=== PATIENT | female | born 1940 | race Asian ===

== ENCOUNTER 2023-09-07 13:05 | Inpatient (IN) | payer MEDICAID, SELFPAY ==
[2023-09-07] VITALS (13 sets, daily range): BP systolic 118–149; BP diastolic 63–81; BMI 21.6
--- NOTE | 2023-09-07 11:56 | ED.GENMED ---
History of Present Illness
General
Chief Complaint: Abdominal Symptoms
Source: patient and family
Time Seen by Provider: 09/07/23 10:56
Travel History
Have you had any contact with someone who has COVID-19?: No
Do you have any symptoms of coronavirus? Fever > 100 degrees, chills, cough, shortness of breath, sore throat, loss of taste or smell, muscle aches, or headache?: No
History of Present Illness
History of Present Illness:
83-year-old female presents to the emergency room directly from having a colonoscopy. Patient was having colonoscopy because she has been having poor appetite, weight loss over the past several weeks. She had a CAT scan performed as an outpatient
which was suspicious for a colonic abnormality. Today during the colonoscopy she was she was found to have an almost completely obstructing colonic mass. Patient was therefore sent to the emergency room for hospitalization and likely surgical
intervention.
Past History
Past History
ED Past Medical History: None
ED Past Surgical History:
Social History
Tobacco: Non-smoker
Alcohol: None
Personal: Single
Living: with family
Phy Exam
Physical Exam
Physical Exam:
General: Awake, Alert, Oriented X3. Appears stated age, very thin
Vitals: unremarkable
Head: Atraumatic
Eyes: Pupils equal, EOMI
Throat: Airway intact, no exudates
Neck: Trachea midline
Lungs: Clear and equal b/l
Heart: Regular rate, no murmurs
Abd: Soft, Nontender, No pulsatile mass
Neuro: Nonfocal
Skin: Warm, dry, no rash
Extremities: pulses equal b/l, no edema
Course
Orders/Labs/Results
Orders:
Orders
09/07/23 Lunch
Clear Liquid
At Your Request: Limited Participation
Oral Supplement (If unsure of flavor order apple or vanilla): Ensure Clear Thompson
Supplement Frequency: BID
09/07/23 11:48
Complete Blood Count/With Diff Urgent
Comprehensive Metabolic Panel Urgent
Ferritin Urgent
Comment: ADD ON
Folate Urgent
Comment: ADD ON
Iron Urgent
Comment: ADD ON
Prealbumin (Transthyretin) Urgent
Comment: ADD ON
Total Iron Binding Urgent
Comment: ADD ON
Vitamin B12 Urgent
Comment: ADD ON
09/07/23 11:59
Type+Screen Urgent
09/07/23 12:00
0.9% Sodium Chloride 1000 ml [Nss] 1,000 ml IV 150 mls/hr
09/07/23 12:30
Admit/Transfer Patient As Directed
Co-Sign Provider:
Level of Care: Inpatient admission
Assign to:: Medical/Surgical
Physician / Group: Shadi Segundo
Diagnosis: colon cancer
Reason for Hospitalization: obstructing colon cancer
Expected length of stay greater than two midnights?: Yes
ELOS- Estimated Length of Stay in days: 7
I certify the patient meets the requirements for IP care: Yes
09/07/23 12:43
Consult Hospitalist [HOSPITALIST CONSULT] Routine
Consulting Provider: Stew Orellana
Was physician already notified: Yes
09/07/23 13:01
CT Chest/abd/pel W Iv Cont Routine
Comment:
Reason For Exam: metastatic work up, known colon ca
Abnormal Lab Results
09/07/23 09/07/23
11:48 11:59
RBC 3.24 L 10^6/uL
(4.20-5.40)
Hgb 7.7 L g/dL
(12.0-16.0)
Hct 24.7 L %
(37.0-47.0)
MCV 76.2 L fL
(81.0-99.0)
MCH 23.8 L pg
(27.0-31.0)
MCHC 31.2 L g/dL
(33.0-37.0)
RDW 18.9 H %
(11.5-14.5)
Chloride 108 H mmol/L
(98-107)
Glucose 103 H mg/dl
(70-99)
Iron 36 L ug/dl
(37-170)
% Saturation 11 L %
(20-50)
Ferritin 10.2 L ng/ml
(11.1-264.0)
AST 69 H U/L
(14-36)
ALT 48 H U/L
(0-35)
Alkaline Phosphatase 218 H U/L
(38-126)
Albumin 2.9 L g/dl
(3.5-5.0)
Prealbumin 13.0 L mg/dl
(17.6-36.0)
Crossmatch IS Only See Detail
09/07/23 11:48
09/07/23 11:48
Vital Signs
Initial and Last Documented VS:
Initial Vital Signs
Temp Pulse Resp BP Pulse Ox
97.6 F 78 16 149/81 95
09/07/23 10:41 09/07/23 10:41 09/07/23 10:41 09/07/23 10:41 09/07/23 10:41
Last Documented Vital Signs
Temp Pulse Resp BP Pulse Ox
97.6 F 78 16 149/81 95
09/07/23 10:41 09/07/23 10:41 09/07/23 10:41 09/07/23 10:41 09/07/23 10:41
MDM/Problems Addressed
Differential Diagnosis Includes:
Colonic mass, colonic obstruction
MDM/Problems Addressed:
Patient sent from GI suite after having a colonoscopy which shows a near complete obstruction of the colon from the mass. Surgical intervention planned by colorectal surgery. Labs here show a hemoglobin of 7.7, mild transaminitis.
*Pulse Oximetry
Patient hypoxic: no
*Critical Care Note
Total Time (30-74mins, 75-104mins- exclusive of procedures): Not Applicable
ED Attending Note
-
Portions of this chart may have been created with voice recognition software.� Occasional wrong word or��sound alike� substitutions may have occurred due to the inherent limitations of voice recognition software.
Discharge Plan
Departure
Patient Disposition: Admit
Date of Disposition: 09/07/23
Time of Disposition: 11:59
Admit to: Med/Surg
Presentation/result/management discussed w/ accepting MD/DO: Hospitalist
Condition: Fair
Discharge Problem:
Impending colonic obstruction, Colonic mass
Interventions
Interventions:
*Risk Screen - Suicide Last Done: 09/07/23 15:07
*General Assessment Last Done: 09/07/23 15:07
*Neglect/Abuse Screening Last Done: 09/07/23 15:07
*ED COVID-19 Vaccine History Last Done: 09/07/23 10:41
ZA-Zhnxgh-Eujgokecle Assessment Last Done: 09/07/23 15:07
[2023-09-07] MEDS: NSS 1000 IV ×2 (12:05→20:25)
[2023-09-07 12:08] LABS: % Basophils 0.5 % (0-2); % Eosinophils 1.9 % (0-6); % Immature Granulocytes 0.2 % (0-0.5); % Lymphocytes 38.3 % (20.5-51.1); % Monocytes 8.4 % (1.7-9.3); % Neutrophils 50.7 % (42.2-75.2); Absolute Eosinophils 0.1 10^3/uL (0-0.7); Absolute Lymphocytes 2.2 10^3/uL (1.2-3.4); Absolute Monocytes 0.5 10^3/uL (0.1-0.6); Absolute Neutrophils 2.9 10^3/uL (1.4-6.5); Hematocrit 24.7 % (37.0-47.0); Hemoglobin 7.7 g/dL (12.0-16.0); Mean Corp Hgb Conc. 31.2 g/dL (33.0-37.0); Mean Corpuscular Hgb 23.8 pg (27.0-31.0); Mean Corpuscular Volume 76.2 fL (81.0-99.0); Mean Platelet Volume 10.3 fL (7.4-10.4); Nucleated Red Blood Cells % 0 %; Platelet Count 294 10^3/uL (130-400); Red Blood Cell Count 3.24 10^6/uL (4.20-5.40); Red Cell Dist. Width 18.9 % (11.5-14.5); White Blood Cell Count 5.7 10^3/uL (4.8-10.8)
[2023-09-07 12:18] LABS: ALT (SGPT) 48 U/L (0-35); AST (SGOT) 69 U/L (14-36); Albumin 2.9 g/dl (3.5-5.0); Alkaline Phosphatase 218 U/L (38-126); Blood Urea Nitrogen 15 mg/dl (7-17); Calcium 8.5 mg/dl (8.4-10.2); Carbon Dioxide 22 mmol/L (22-30); Chloride 108 mmol/L (98-107); Glucose 103 mg/dl (70-99); Potassium 3.9 mmol/L (3.5-5.1); Sodium 139 mmol/L (135-145); Total Bilirubin 0.9 mg/dl (0.2-1.3); Total Protein 6.6 g/dl (6.3-8.2); eGFR > 60.00
--- NOTE | 2023-09-07 13:05 | HPS.HSE ---
Addendum entered and electronically signed by Shadi Segundo MD 09/07/23 14:47:
History, vitals, labs, prior imaging reviewed. Patient seen and examined.
83-year-old female with splenic flexure colon mass which is endoscopically obstructing but not clinically obstructing and is likely a colon cancer. This was initially found on outpatient CT and earlier today confirmed on colonoscopy that I
performed in the [facility] center. I was unable to traverse the area. It was biopsied and tattooed. 2 polyps that were benign in appearance distal to this were removed as well. She has had weight loss, decrease in appetite, and change in bowel
function towards constipation. No nausea or vomiting. Prior CT showed no obvious abdominal metastatic disease. Vitals are stable. Hemoglobin low at 7.7. Mild transaminitis noted on LFTs. Albumin a little low at 2.9. I am concerned about
impending obstruction. Discussed the situation with the patient's daughter, Noe. Patient's daughter relates that the patient is aware of her circumstances. I recommended admission to the hospital for likely surgical intervention. Will likely
need transfusion. Will obtain repeat CT imaging to include not only abdomen and pelvis but also the chest. Anticipate some magnesium citrate tomorrow. Continue clears till evening. Surgery tentatively Tuesday 2 days from now. I
discussed that the appropriate operation would be a robotic left colectomy. Emphasized the higher risk of conversion to open given its proximity to the spleen and potentially a slightly higher risk of anastomotic issues due to mild malnutrition.
The patient's daughter understands and relates this to the patient. Hospitalist consulted for medical management/clearance.
Thanks.
Original Note:
Family Physician
-
Family Physician: Kathleen Rhodes DO
Chief Complaint
-
Weight loss, change in bowel habits
History of Present Illness
83-year-old female, with a known colon mass, presents to the ED directly from outpatient colonoscopy. The was initially seen by Dr. Segundo in outpatient clinic on 07/18/2023. Initially the patient had developed right lower quadrant discomfort
about a year ago which resolved but led to outpatient blood work. 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 Infectious disease recommended a CT scan of the abdomen and pelvis which was done on 07/06/2023. They resulted
in a a centimeter segment of colon wall thickening at the splenic flexure/proximal descending colon which was described as 'highly suspicious for neoplasm, colonoscopy advised'. The patient never had a colonoscopy in the past. Probably cystic
liver was also noted at that time. The patient had blood work on 06/26/2023 which showed elevated LFTs. The patient has had ongoing diminished appetite with a weight loss of 10 to 15 pounds over the past year. She had a spotting of stool in her
blood once. Her bowel habits have changed to every other day from daily. She denies nausea or vomiting. She has no fevers or chills. Her family history is negative for colorectal cancer.
After the patient was seen in clinic it was recommended the patient undergo a colonoscopy with Dr. Segundo. The patient had canceled in early July but then rescheduled to today. Dr. Segundo discovered a partially obstructing splenic flexure
cancer. Given concern for impending obstruction, she was sent to the ER for admission, bowel prep, and surgery later this week.
Medical History
Past Medical History
Past Medical History: Reports NIDDM and Psychiatric (Anxiety)
Past Surgical History: Reports and Other (Cataract)
Social History
Tobacco: Non-smoker
Alcohol: None
Drug: None
Family History
Family History: Not pertinent
Allergies / Home Medications
Allergy/Medication List:
Allergies: No known drug allergies
Medications:
Lipitor 40 mg p.o. every afternoon
Colace 100 mg p.o. twice daily as needed
Metformin 500 mg p.o. twice daily
Mirtazapine 30 mg p.o. nightly
Review of Systems
-
History Source: Patient
A 12 point ROS was completed and negative except as noted: Yes
Constitutional: Reports Weight Loss
Abdomen/GI: Reports Abdominal Pain, Constipated and Bloody Stools
Physical Exam
Vital Signs
Vital Signs
Temp Pulse Resp BP Pulse Ox
97.6 F 78 16 149/81 95
09/07/23 10:41 09/07/23 10:41 09/07/23 10:41 09/07/23 10:41 09/07/23 10:41
Physical Exam
General: No Apparent Distress
HEENT: NormoCephalic
GI: Soft, Non Tender and Non Distended
Skin: Warm and Dry
Neuro: AO x 3
Laboratory Results
-
09/07/23 11:48
09/07/23 11:48
Laboratory Results
Total Bilirubin 0.9 mg/dl (0.2-1.3) 09/07/23 11:48
AST 69 U/L (14-36) H 09/07/23 11:48
ALT 48 U/L (0-35) H 09/07/23 11:48
Alkaline Phosphatase 218 U/L (38-126) H 09/07/23 11:48
Data Reviewed
-
CT Scan: Image Personally Visualized and interpreted and Report Reviewed by me
Medical Tests (Nuc Med, Echo, EKG etc): Image Personally Visualized and interpreted
Lab Data: Labs Reviewed by me and Discussed with Physician
Old Records: Reviewed
Impression/Plan
-
IMPRESSION: Partially obstructing splenic flexure colon cancer
PLAN:
The patient will be admitted to medical surgical unit. Given concern for impending obstruction, OR arrangements have been made for 09/09/2023 for a robotic left colectomy with Dr. Segundo. CT chest abdomen and pelvis ordered for a metastatic workup.
CEA is pending. Hemoglobin is 7.7 and we will repeat in the morning and likely transfuse in preparation for OR. Medicine service consulted for medical management. Remain on clears with Ensure. Prealbumin and albumin ordered. Anticipate
magnesium citrate bowel prep tomorrow. I left a voicemail on the daughter's phone with the plan above.
--- NOTE | 2023-09-07 13:30 | CON.HOSP ---
Addendum entered and electronically signed by Stew Orellana MD 09/07/23 17:32:
I saw and examined the patient.
The FRAME PULLEY M[employer]ISING MACHINE OPERATOR or PA's note was reviewed and I agree with the note.
Comment:
Addendum entered and electronically signed by Stew Orellana MD 09/07/23 15:00:
Patient 83 years old Amharic female, Mandarin speaking, with history of hypertension, hyperlipidemia, diabetes mellitus, presented to the hospital for evaluation of colon mass by colorectal surgery and we were asked to see her in consultation.
Patient had a CT scan June 2023 that showed wall thickening of the colon as well as some low-attenuation intrahepatic lesions in the liver and she just had a colonoscopy that showed a near obstructing mass in the colon therefore she was sent to
the hospital for further evaluation and probable left colectomy. Patient has been having abdominal discomfort associated with change in bowel habits and 15 kg weight loss over the last year or so. She denies any chest pain on exertion or at rest,
denies any dyspnea on exertion, denies any syncope or near syncope diaphoresis or palpitations. Daughter at the bedside who corroborates history and tells me she has been very active prior to the last few months where she has seen some decline and
she had been able to walk about 5000 steps or more without any symptoms. Denies any history of heart disease in the past and denies any history of family premature CAD or sudden cardiac . In the ED, hemoglobin 7.7, creatinine 0.7 and
electrolytes within normal limits, LFTs elevated and albumin 2.9. She was referred to hospitalist for further evaluation.
Physical exam:
General: Chronically ill appearance
HEENT: Normocephalic, Atraumatic and Moist Mucous Membranes
Respiratory: Clear to Auscultation; Negative Wheezes, Rales or Rhonchi
Cardiac: Regular Rhythm and S1/S2
GI: Soft, Tender and Nondistended
Musculoskeletal: No Clubbing, No Cyanosis and No Edema
Neuro: Awake, Alert and Oriented
Psych: Calm
A/P:
Colon mass, likely malignancy/preop eval--> noted CT scan of the chest and abdomen already ordered by colorectal surgery, I would like to obtain a twelve-lead EKG for preop eval. I would also recommend optimization of her anemia prior to the
upcoming surgery. Providing the EKG is acceptable and anemia improves, there is no prohibitive factors for surgery such as myocardial infarction, decompensated heart failure, severe valvulopathy, or decompensated arrhythmias. Will give our final
recommendations after the present workup is completed.
Original Note:
Family Physician
-
Family Physician: Kathleen Rhodes DO
Chief Complaint
-
Colonic mass, anemia, medical consultation
History of Present Illness
83-year-old female sent over from GI for evaluation status post colonoscopy with where a mass was found partially obstructing her colon. She will undergo a robotic left colectomy on Tuesday in 2 days. She was noted to be anemic with transaminitis.
Her daughter Tung states her mother has had weight loss with decreased appetite over the past year with a 15 kg weight loss. She has had 1 month of bowel changes resulting in constipation. The daughter is translating for her mother who speaks
Mandarin. She denies any headache, dizziness, sore throat, fever, chills, chest pain, palpitations, shortness of breath, cough, abdominal pain, nausea, vomiting, diarrhea, urinary symptoms, sick contacts, recent illness. She has past medical
history of HLD, DM2, insomnia.
Medical History
Past Medical History
Past Medical History: Reports Other
Additional Past Medical History:
DM2
HLD
Insomnia
Past Surgical History: Reports (X 2) and Other
Additional Past Surgical History:
Cataract extraction bilateral
Social History
Tobacco: Non-smoker
Alcohol: None
Drug: None
Personal: Single
Living: With Family
Employment: Retired
Family History
Family History: Cancer (Mother breast cancer age 76 and lung cancer age 84 father age 50 unsure, brother 1 with liver cancer other unknown cancer both )
Allergies / Home Medications
Allergies reflects when Allergies were last updated in [employer].
Home Medications with original date entered in [employer]
Allergy/Medication List:
Allergies
Allergy/AdvReac Type Severity Reaction Status Date / Time
No Known Allergies Allergy Verified 09/07/23 10:43
Home Medications
atorvastatin 40 mg tablet (Lipitor) 40 mg PO QPM High Cholesterol 09/07/23
docusate sodium 100 mg capsule (Colace) 100 mg PO BIDPRN PRN constipation 09/07/23
metformin 500 mg tablet 500 mg PO BID@0800,1700 Diabetes 09/07/23
mirtazapine 30 mg tablet 30 mg PO Mental Health 09/07/23
Review of Systems
-
History Source: Patient and Family (Chester fuentes )
A 12 point Review of Systems was completed except as noted: Yes
Constitutional: Reports Weight Loss (15 kg past year) and Fatigue; Denies Fever or Chills
EENT: Denies Sore Throat or Runny Nose
Respiratory: Denies Cough or Trouble Breathing
Cardiac: Denies Chest Pain, Diaphoresis or Palpitations
Abdomen/GI: Reports Constipated (On and off past month); Denies Abdominal Pain, Nausea, Vomiting, Diarrhea, Bloody Stools or Black Stools
: Denies Dysuria, Frequency, Flank Pain, Incontinence or Difficulty Voiding
Musculoskeletal: Denies Joint Pain or Edema
Skin: Denies Itching
Neurological: Denies Dizzy, Headache or Weakness
Endocrine: Reports No Symptoms
Hematologic/Lymphatic: Reports No Symptoms
Psych: Reports Calm
Physical Exam
Vital Signs
Vital Signs
Temp Pulse Resp BP Pulse Ox
97.6 F 78 16 149/81 95
09/07/23 10:41 09/07/23 10:41 09/07/23 10:41 09/07/23 10:41 09/07/23 10:41
Physical Exam
General: Comfortable; Negative Pain, Fever or Chills
HEENT: Normocephalic, Anicteric and Moist Mucous Membranes
Respiratory: Clear; Negative Wheezes, Rales or Rhonchi
Cardiac: S1/S2 and Regular Rhythm; Negative Murmur, Rub or Peripheral Edema
Breast: Deferred by me
GI: Soft, Non Distended, Normal Bowel Sounds, Tender (Slight tenderness on palpation left lower quadrant) and No Hepatosplenomegaly
Rectal: Deferred by Provider
Musculoskeletal: No Clubbing, No Cyanosis and No Edema
Skin: Warm and Dry; Negative Rash
Neuro: AO x 3 (Per daughter translating), No Motor Deficits and Nonfocal/Grossly Intact; Negative Slurred Speech, Facial Droop, Tremors or Sedated
Psych: Calm
Laboratory Results
-
Laboratory Results
09/07/23 11:48
09/07/23 11:48
Total Bilirubin 0.9 mg/dl (0.2-1.3) 09/07/23 11:48
AST 69 U/L (14-36) H 09/07/23 11:48
ALT 48 U/L (0-35) H 09/07/23 11:48
Alkaline Phosphatase 218 U/L (38-126) H 09/07/23 11:48
Data Reviewed
-
Lab Data: Labs Reviewed
Impression / Plan
-
Impression/plan
Medical consultation
#Colon mass found on colonoscopy
Weight loss 15 kg in the past year
-Clear liquid diet
-N.p.o. after midnight for robotic left colectomy
-Patient admitted under Dr. Segundo service
-check CEA
-CT Chest / abdomen /pelvis with contrast ordered in the ER
-EKG-check preop
#Anemia microcytic
Hgb 7.7, MCV 76.2
-Type and screen ,tranfuse 1 unit recheck cbc in am if needing further , blood consent obtained from daughter and scanned to chart
-Check iron panel, B12, folate
-Follow CBC
#DM 2
-Accu-Cheks with SSI
-Hold metformin
#Acute transaminitis�mild
#HLD
AST 69, ALT 48, alk phos 218
-Hold Lipitor
#Insomnia
- cont remeron
DVT prophylaxis
Subcu Lovenox
DNR per patient discussion with daughter SAM at bedside.
[2023-09-07] MEDS: OMNIPAQUE 50 ML PO (13:31)
[2023-09-07] MEDS: ZOFRAN 4 MG IV (14:09)
[2023-09-07 14:24] LABS: Iron 36 ug/dl (37-170)
[2023-09-07 14:34] LABS: Percent Saturation 11 % (20-50); Total Iron Binding Capacity 320 ug/dl (265-497)
--- NOTE | 2023-09-07 15:01 | W.PN.UPDATE ---
Update Note
Progress Note Update
CT C/A/P is to be IV only. I spoke with inpatient ER CT department earlier and informed them after I saw po order placed in [facility]. I discontinued the order immediately. Patient was given some Omnipaque - I called RN to discontinue it.
[2023-09-07 16:20] LABS: Ferritin 10.2 ng/ml (11.1-264.0)
[2023-09-07 16:51] LABS: Folate 10.4 ng/ml (2.76-20); Vitamin B12 406 pg/ml (239-931)
[2023-09-07] MEDS: NSS IV (19:03)
[2023-09-07] MEDS: REMERON 30 MG PO (20:59)
[2023-09-07] MEDS: LOVENOX 40 MG SC (21:00)
--- NOTE | 2023-09-07 22:09 | PTCARENOTE ---
Pt admitted from ED, alert and oriented x 3. Pt ambulated to bed with steady gait. No c/o pain. PIV x [address] MIVF infusing without issues. Lungs clear, pt on room air. Pt oriented to room. Call oneil within reach.
[2023-09-08 03:00] VITALS: BP 127/68
[2023-09-08 07:00] VITALS: BP 120/62
[2023-09-08 07:43] LABS: % Basophils 0.8 % (0-2); % Eosinophils 2.1 % (0-6); % Immature Granulocytes 0.4 % (0-0.5); % Lymphocytes 29.8 % (20.5-51.1); % Neutrophils 58.9 % (42.2-75.2); Absolute Eosinophils 0.1 10^3/uL (0-0.7); Absolute Lymphocytes 1.5 10^3/uL (1.2-3.4); Absolute Monocytes 0.4 10^3/uL (0.1-0.6); Absolute Neutrophils 2.9 10^3/uL (1.4-6.5); Hematocrit 26.4 % (37.0-47.0); Hemoglobin 8.4 g/dL (12.0-16.0); Mean Corp Hgb Conc. 31.8 g/dL (33.0-37.0); Mean Corpuscular Hgb 23.8 pg (27.0-31.0); Mean Corpuscular Volume 74.8 fL (81.0-99.0); Mean Platelet Volume 10.7 fL (7.4-10.4); Nucleated Red Blood Cells % 0 %; Platelet Count 279 10^3/uL (130-400); Red Blood Cell Count 3.53 10^6/uL (4.20-5.40); Red Cell Dist. Width 18.2 % (11.5-14.5); White Blood Cell Count 4.9 10^3/uL (4.8-10.8)
[2023-09-08 07:52] LABS: INR 1.04; PT 13.9 Sec (11.4-14.6)
[2023-09-08 07:53] LABS: APTT 38.6 Sec (23.4-35.0)
[2023-09-08 07:59] LABS: Blood Urea Nitrogen 10 mg/dl (7-17); Calcium 7.8 mg/dl (8.4-10.2); Carbon Dioxide 19 mmol/L (22-30); Chloride 114 mmol/L (98-107); Estimated Creatinine Clearance 50 ml/min; Glucose 66 mg/dl (70-99); Potassium 3.9 mmol/L (3.5-5.1); Sodium 138 mmol/L (135-145); eGFR > 60.00
[2023-09-08 08:28] LABS: CEA 4.78 ng/ml
[2023-09-08 08:46] LABS: Glucose - Point of Care 69 mg/dl (70-99)
[2023-09-08] MEDS: NSS 1000 IV (08:49)
--- NOTE | 2023-09-08 08:53 | W.PN.HOSP.TC ---
Today's Communication/Plan
-
Monitor hemoglobin. Continue current management.
Assessment / Plan
Assessment / Plan
Physical exam:
General: Well Developed, Well Nourished and No Apparent Distress
HEENT: Normocephalic, Atraumatic and Moist Mucous Membranes
Respiratory: Clear to Auscultation; Negative Wheezes, Rales or Rhonchi
Cardiac: Regular Rhythm and S1/S2
GI: Soft, Nontender and Nondistended
Musculoskeletal: No Clubbing, No Cyanosis and No Edema
Neuro: Awake, Alert and Oriented
Psych: Calm
A/P:
#Colon mass found on colonoscopy
Weight loss 15 kg in the past year
-Clear liquid diet
-N.p.o. after midnight for robotic left colectomy
-Patient admitted under Dr. Segundo service
-checked� CEA--> 4.78
-CT Chest / abdomen /pelvis with contrast ordered--> reviewed results
-EKG-checking preop--> still pending.
#Anemia microcytic
Hgb 7.7, MCV 76.2
-Type and screen ,tranfuse 1 unit recheck cbc in am if needing further , blood consent obtained from daughter and scanned to chart
-Hb today 8.4
-Check iron panel, B12, folate
-Follow CBC
#DM 2
-Accu-Cheks with SSI
-Hba1c 6.8
-Hold metformin
#Acute transaminitis�mild
#HLD
AST 69, ALT 48, alk phos 218
-Hold Lipitor and resume as outpatient after rechecking lft
#Insomnia
- cont remeron
DVT prophylaxis
Subcu Lovenox
DNR
Anticipated Discharge: > 48 hours
Subjective/Interval History
-
Date of Service: September 08, 2023
Patient denies any chest pain or shortness of breath.
Objective Data
-
Labs:
Laboratory Results
09/08/23
07:00
WBC 4.9
Hgb 8.4 L
Hct 26.4 L
Plt Count 279
PT 13.9
INR 1.04
APTT 38.6 H
Sodium 138
Potassium 3.9
Chloride 114 H
Carbon Dioxide 19 L
BUN 10
Creatinine 0.8
Glucose 66 L
Calcium 7.8 L
Vital Signs:
Vital Signs
Temp Pulse Resp BP Pulse Ox
98.0 F 73 16 120/62 96
09/08/23 07:00 09/08/23 07:00 09/08/23 07:00 09/08/23 07:00 09/08/23 07:00
I&O
09/07/23 09/08/23 09/09/23
06:59 06:59 06:59
Intake Total 250 / 250
Balance 250 / 250
[2023-09-08 09:24] LABS: Glucose - Point of Care 75 mg/dl (70-99)
[2023-09-08 10:37] LABS: Glycohemoglobin (HgbA1c) 6.8 % (4.0-5.6)
[2023-09-08 11:43] LABS: Glucose - Point of Care 63 mg/dl (70-99)
--- NOTE | 2023-09-08 11:52 | W.PN.CRS1 ---
Today's Communication / Plan
-
OR tomorrow
Assessment/Plan
-
Partially obstructing splenic flexure colon cancer
1. Plan is for OR tomorrow afternoon.
2. Magnesium citrate prep this afternoon.
3. Remain on clears for now and n.p.o. at midnight.
4. Preop medications ordered.
5. Appreciate hospitalist consult
6. Colonoscopy pathology pending.
7. Discussed plan in length with her daughter, Noe.
Subjective Data
Subjective Data
Date of Service: September 08, 2023
Patient has no complaints
Objective Data
-
Vital Signs
Temp Pulse Resp BP Pulse Ox
98.0 F 73 16 120/62 96
09/08/23 07:00 09/08/23 07:00 09/08/23 07:00 09/08/23 07:00 09/08/23 07:00
Intake & Output
09/07/23 09/08/23 09/09/23
06:59 06:59 06:59
Intake Total 250 / 250
Balance 250 / 250
Intake:
Blood Product Amount Infused ( 250 / 250
mL)
Packed Rbc Leukoreduced Unit 250 / 250
[id number]
Lab Results
09/08/23 07:00
09/08/23 07:00
Physical Exam
-
General: No Acute Distress and AOx3
Abdomen: Soft, Non Distended and Non Tender
Skin: Warm and Dry
--- NOTE | 2023-09-08 12:15 | CM ---
Chart reviewed. Pt Mandarin speaking
Daughter Tung at bedside - provided information
Pt lives with daughter in multi-story home
Independent prior to hospitalization - did cooking, cleaning
Denies any VNA/SNF
No DME
PCP Dr Kim Rhodes
Pharm [facility], [place]
Plan - TBD - pt with newly diagnosed colon cancer
for OR today
[2023-09-08 13:36] VITALS: BMI 22.3
[2023-09-08] MEDS: NEOMYCIN 1000 MG PO ×2 (13:54→15:44)
[2023-09-08] MEDS: CITROMA 300 ML PO (13:54)
[2023-09-08] MEDS: FLAGYL 1000 MG PO ×2 (13:54→15:44)
[2023-09-08 15:00] VITALS: BP 127/68
[2023-09-08 17:23] LABS: Glucose - Point of Care 82 mg/dl (70-99)
[2023-09-08] MEDS: LIPITOR 40 MG PO (17:47)
[2023-09-08 19:00] VITALS: BP 134/58
[2023-09-08] MEDS: REMERON 30 MG PO (21:02)
[2023-09-08 21:22] LABS: Glucose - Point of Care 67 mg/dl (70-99)
[2023-09-08 21:46] LABS: Glucose - Point of Care 84 mg/dl (70-99)
[2023-09-08 22:06] VITALS: BP 114/60
[2023-09-08 22:29] VITALS: BP 131/68
[2023-09-09] VITALS (12 sets, daily range): BP systolic 110–157; BP diastolic 62–83
[2023-09-09] MEDS: NEOMYCIN 1000 MG PO (00:57)
[2023-09-09] MEDS: FLAGYL 1000 MG PO (00:57)
[2023-09-09] MEDS: NSS 1000 IV ×2 (01:50→18:30)
[2023-09-09 02:56] LABS: Glucose - Point of Care 77 mg/dl (70-99)
[2023-09-09 05:52] LABS: Glucose - Point of Care 61 mg/dl (70-99)
[2023-09-09] MEDS: DEXTROSE 50% SYRINGE 12.5 GRAMS IV (05:55)
[2023-09-09 06:28] LABS: Glucose - Point of Care 107 mg/dl (70-99)
[2023-09-09] MEDS: NOVOLOG FLEXPEN-LOW RESISTANCE SC ×3 (06:31→18:25)
[2023-09-09 07:33] LABS: Blood Urea Nitrogen 8 mg/dl (7-17); Calcium 7.9 mg/dl (8.4-10.2); Carbon Dioxide 20 mmol/L (22-30); Chloride 114 mmol/L (98-107); Estimated Creatinine Clearance 50 ml/min; Glucose 103 mg/dl (70-99); Potassium 3.5 mmol/L (3.5-5.1); Sodium 139 mmol/L (135-145); eGFR > 60.00
[2023-09-09 08:00] LABS: % Basophils 0.6 % (0-2); % Eosinophils 2.2 % (0-6); % Immature Granulocytes 0.2 % (0-0.5); % Lymphocytes 26.2 % (20.5-51.1); % Monocytes 9.5 % (1.7-9.3); % Neutrophils 61.3 % (42.2-75.2); Absolute Eosinophils 0.1 10^3/uL (0-0.7); Absolute Lymphocytes 1.3 10^3/uL (1.2-3.4); Absolute Monocytes 0.5 10^3/uL (0.1-0.6); Hematocrit 31.6 % (37.0-47.0); Hemoglobin 10.2 g/dL (12.0-16.0); Mean Corp Hgb Conc. 32.3 g/dL (33.0-37.0); Mean Corpuscular Hgb 24.9 pg (27.0-31.0); Mean Corpuscular Volume 77.3 fL (81.0-99.0); Mean Platelet Volume 10.8 fL (7.4-10.4); Nucleated Red Blood Cells % 0 %; Platelet Count 308 10^3/uL (130-400); Red Blood Cell Count 4.09 10^6/uL (4.20-5.40); Red Cell Dist. Width 18.6 % (11.5-14.5); White Blood Cell Count 4.9 10^3/uL (4.8-10.8)
--- NOTE | 2023-09-09 08:00 | W.PN.HOSP.TC ---
Today's Communication/Plan
-
Plan for robotic hemicolectomy today.
Assessment / Plan
Assessment / Plan
Physical exam:
General: Well Developed, Well Nourished and No Apparent Distress
HEENT: Normocephalic, Atraumatic and Moist Mucous Membranes
Respiratory: Clear to Auscultation; Negative Wheezes, Rales or Rhonchi
Cardiac: Regular Rhythm and S1/S2, mild murmur.
GI: Soft, Nontender and Nondistended
Musculoskeletal: No Clubbing, No Cyanosis and No Edema
Neuro: Awake, Alert and Oriented
Psych: Calm
A/P:
# Nearly Obstructing Colon Mass, likely malignancy:
-Plan for robotic left colectomy today 09/09.
-Patient admitted under Dr. Segundo service
-checked� CEA--> 4.78
-CT Chest / abdomen /pelvis with contrast ordered--> reviewed results (no obvious metastatic disease).
-Discussed with daughter at bedside who is usually here every day.
#Preop eval:
-Patient at moderate risk preoperative but not medical prohibition to go for surgery. Optimized medically.
-EKG normal sinus rhythm at [address]-T changes abnormalities.
#Anemia:
-Hemoglobin upon admission 7.7--> today hemoglobin 10.2
-Status post blood transfusion
-Continue to monitor hemoglobin perioperatively
-B12 406, Folate 10.4, iron 36, ferritin 10.2, 11% saturation
-Can supplement with iron down the road.
# Diabetes mellitus type 2:
-Blood sugar stable
-Continue Accu-Cheks with SSI
-Hba1c 6.8
-Continue to hold metformin and will resume once able to take oral.
-Continue to monitor blood sugars
# Elevated LFTs:
-Low-attenuation foci in the liver likely multiple hepatic cysts by CT scan
-Holding Lipitor
-Will recheck LFTs in a.m.
#Insomnia:
- cont remeron 30 mg nightly if able to take oral
DVT prophylaxis:
-Subcu Lovenox 40 mg daily
CODE STATUS:
-DNR
Anticipated Discharge: > 48 hours
Subjective/Interval History
-
Date of Service: September 09, 2023
Patient has any chest pain or shortness of breath. Denies abdominal pain or nausea or vomiting. She had bowel prep overnight.
Objective Data
-
Labs:
Laboratory Results
09/09/23
06:49
WBC Pending
Hgb Pending
Hct Pending
Plt Count Pending
Sodium 139
Potassium 3.5
Chloride 114 H
Carbon Dioxide 20 L
BUN 8
Creatinine 0.8
Glucose 103 H
Calcium 7.9 L
Vital Signs:
Vital Signs
Temp Pulse Resp BP Pulse Ox
97.7 F 64 18 132/72 95
09/09/23 01:38 09/09/23 01:38 09/09/23 01:38 09/09/23 01:38 09/09/23 01:38
I&O
09/08/23 09/09/23 09/10/23
06:59 06:59 06:59
Intake Total 250 / 250 450 / 450
Balance 250 / 250 450 / 450
Review of Systems
-
All other systems: Reviewed and negative
[2023-09-09] MEDS: NEURONTIN 600 MG PO (11:47)
[2023-09-09] MEDS: TYLENOL 1000 MG PO (11:47)
[2023-09-09] MEDS: ENTEREG 12 MG PO (11:47)
[2023-09-09] MEDS: HEPARIN 5000 UNITS SC (11:48)
[2023-09-09 15:11] LABS: Glucose - Point of Care 112 mg/dl (70-99)
--- NOTE | 2023-09-09 17:32 | W.IMMPOSTOP ---
Addendum entered and electronically signed by Shadi Segundo MD 09/09/23 17:47:
Patient's daughter, Noe, updated in waiting area.
Original Note:
Surgical Immed Post Op Note
-
Primary Surgeon: Scott Segundo MD
Assisting Surgeon: AMY Hart
Pre-op Diagnosis: splenic flexure cancer
Post-op Diagnosis: same
Procedure Performed: 1) robotic left colectomy 2) takedown splenic flexure
Anesthesia Type: general plus local
Specimen / Cultures: left colon
Estimated Blood Loss: 100 cc
Complications: no immediate
Operative Findings: splenic flexure mass with associated tattoo
Hedrick in bladder.
Will send back to med surg.
[2023-09-09 17:51] LABS: Glucose - Point of Care 112 mg/dl (70-99)
[2023-09-09] MEDS: TORADOL 10 MG IV (18:27)
--- NOTE | 2023-09-09 19:25 | PTCARENOTE ---
patient arrived to unit from PACU at 0. Report from PACU given to oncoming RN. Pt family member at bedside.
[2023-09-09] MEDS: REMERON PO (20:41)
[2023-09-09] MEDS: TYLENOL PO (20:41)
[2023-09-09] MEDS: LIPITOR PO (20:41)
[2023-09-09 21:56] LABS: Glucose - Point of Care 161 mg/dl (70-99)
[2023-09-10 00:30] LABS: Glucose - Point of Care 171 mg/dl (70-99)
[2023-09-10] MEDS: TORADOL 10 MG IV ×4 (00:35→16:51)
[2023-09-10] MEDS: NOVOLOG FLEXPEN-LOW RESISTANCE 1 UNITS SC ×2 (00:35→16:52)
[2023-09-10] MEDS: TYLENOL PO ×2 (00:38→05:06)
[2023-09-10 03:25] VITALS: BP 118/64
[2023-09-10 04:42] LABS: % Basophils 0.1 % (0-2); % Immature Granulocytes 0.5 % (0-0.5); % Lymphocytes 11.3 % (20.5-51.1); % Monocytes 5.9 % (1.7-9.3); % Neutrophils 82.2 % (42.2-75.2); Absolute Immature Granulocytes 0.1 10^3/uL (0-0.05); Absolute Lymphocytes 1.5 10^3/uL (1.2-3.4); Absolute Monocytes 0.8 10^3/uL (0.1-0.6); Absolute Neutrophils 10.7 10^3/uL (1.4-6.5); Hematocrit 28.9 % (37.0-47.0); Hemoglobin 9.3 g/dL (12.0-16.0); Mean Corp Hgb Conc. 32.2 g/dL (33.0-37.0); Mean Corpuscular Hgb 25.3 pg (27.0-31.0); Mean Corpuscular Volume 78.5 fL (81.0-99.0); Mean Platelet Volume 10.9 fL (7.4-10.4); Nucleated Red Blood Cells % 0 %; Platelet Count 336 10^3/uL (130-400); Red Blood Cell Count 3.68 10^6/uL (4.20-5.40); Red Cell Dist. Width 18.6 % (11.5-14.5)
[2023-09-10 05:58] LABS: ALT (SGPT) 30 U/L (0-35); AST (SGOT) 47 U/L (14-36); Albumin 2.7 g/dl (3.5-5.0); Alkaline Phosphatase 193 U/L (38-126); Blood Urea Nitrogen 10 mg/dl (7-17); Calcium 7.6 mg/dl (8.4-10.2); Carbon Dioxide 13 mmol/L (22-30); Chloride 114 mmol/L (98-107); Estimated Creatinine Clearance 44 ml/min; Glucose 154 mg/dl (70-99); Magnesium 2.5 mg/dl (1.6-2.3); Potassium 4.1 mmol/L (3.5-5.1); Sodium 139 mmol/L (135-145); Total Bilirubin 0.9 mg/dl (0.2-1.3); Total Protein 6.2 g/dl (6.3-8.2); eGFR > 60.00
[2023-09-10 06:00] VITALS: BMI 22.5
[2023-09-10] MEDS: NOVOLOG FLEXPEN-LOW RESISTANCE SC ×3 (06:17→23:51)
[2023-09-10 06:18] LABS: Glucose - Point of Care 144 mg/dl (70-99)
[2023-09-10] MEDS: NSS IV (06:24)
[2023-09-10] MEDS: SODIUM BICARBONATE 1150 MEQ IV ×2 (07:18→22:32)
[2023-09-10 07:58] VITALS: BP 102/60
[2023-09-10] MEDS: PROTONIX 40 MG PO (08:02)
[2023-09-10] MEDS: ENTEREG 12 MG PO ×2 (08:02→20:02)
[2023-09-10] MEDS: TYLENOL 650 MG PO ×4 (08:03→20:00)
--- NOTE | 2023-09-10 10:11 | W.PN.HOSP.TC ---
Today's Communication/Plan
-
see bold
Assessment / Plan
Assessment / Plan
Gen: NAD, Awake and alert
Eyes: EOMI, PERRLA, no scleral icterus.
Neck: supple.
CV: RRR, +S1/S2, no m/r/g.
Resp: CTAB, no rales, wheezes, or rhonchi.
Abd: +BS, soft, NT to light palpation, ND
Skin: No rashes.
Neuro: CN 2-12 intact, non-focal.
Psych: Normal mood and affect.
CT C/A/P w/IV 09/07/23:
1. As noted previously and there is an area of abnormality involving the descending colon suspicious for malignancy.
2. Low-attenuation foci in the liver are unchanged and likely multiple hepatic cysts.
3. Tiny low-attenuation foci seen in both kidneys are likely small cysts but too small to accurately characterize
4. Linear band in the right upper lobe is likely atelectasis versus scarring
Nearly Obstructing Colon Mass, likely malignancy:
-s/p robotic left colectomy with takedown of splenic flexure on 09/09/23
-CEA 4.78
-CT C/A/P without obvious metastatic disease
-clears
-CRS primary
Iron deficiency anemia:
-With mass in the colon there is likely a component of chronic blood loss anemia
-s/p 2U pRBCs
-trend Hb
-B12 406, Folate 10.4, iron 36, ferritin 10.2, 11% saturation
Non-AG met acidosis:
-cont bicarb gtt
DM2:
-Continue Accu-Cheks with SSI
-Hba1c 6.8
-Continue to hold metformin
Elevated LFTs, holding statin, improving
Insomnia
DNR/Lovenox
Anticipated Discharge: > 48 hours
Subjective/Interval History
-
Date of Service: September 10, 2023
Mild post-op pain, BM this AM.
Objective Data
-
Labs:
Laboratory Results
09/10/23
03:44
WBC 13.0 H
Hgb 9.3 L
Hct 28.9 L
Plt Count 336
Sodium 139
Potassium 4.1
Chloride 114 H
Carbon Dioxide 13 L*
BUN 10
Creatinine 0.9
Glucose 154 H
Calcium 7.6 L
Total Bilirubin 0.9
AST 47 H
ALT 30
Alkaline Phosphatase 193 H
Vital Signs:
Vital Signs
Temp Pulse Resp BP Pulse Ox
97.9 F 78 16 102/60 98
09/10/23 07:58 09/10/23 07:58 09/10/23 07:58 09/10/23 07:58 09/10/23 07:58
I&O
09/09/23 09/10/23 09/11/23
06:59 06:59 06:59
Intake Total 450 / 450 100 / 100
Output Total 775 / 775
Balance 450 / 450 -675 / -675
--- NOTE | 2023-09-10 10:20 | W.PN.CRS1 ---
Today's Communication / Plan
-
CLD
Voiding trial
Assessment/Plan
-
Partially obstructing splenic flexure colon cancer now POD #1 robotic left colectomy
AFVSS on O2
Mild reactive leukocytosis. Bicarb low.
--Clear liquids as tolerated
--IS q1h while awake, instructions provided at bedside. Wean O2
--Pain management with scheduled/prn multimodal agents
--Hospitalist following for medical management
--Bicarb drip as per medical team, follow labs
--Path pending
--Remove gabriel for voiding trial
--OOB/Ambulate
--Lovenox for VTE ppx, SCD's while in bed
Subjective Data
Procedure
�1) robotic left colectomy 2) takedown splenic flexure
Subjective Data
Date of Service: September 10, 2023
Patient seen and examined at bedside with Dr. Madrigal. Abdominal discomfort present but manageable. Not yet passing flatus. Denies n/v. Tolerating sips of clears. Daughter at bedside and serving as air and hydronic balancing technician per patient request (mandarin/fijian
speaker)
Objective Data
-
Vital Signs
Temp Pulse Resp BP Pulse Ox
97.9 F 78 16 102/60 98
09/10/23 07:58 09/10/23 07:58 09/10/23 07:58 09/10/23 07:58 09/10/23 07:58
Intake & Output
09/09/23 09/10/23 09/11/23
06:59 06:59 06:59
Intake Total 450 / 450 100 / 100
Output Total 775 / 775
Balance 450 / 450 -675 / -675
Intake:
Oral fluids 200 / 200
IV fluids (Total) 100 / 100
normo 100 / 100
Blood Product Amount Infused ( 250 / 250
mL)
Packed Rbc Leukoreduced Unit 250 / 250
[id number]
Output:
UrineRyley 775 / 775
Other:
Number of approximated MODERATE 1
amounts of urine
Lab Results
09/10/23 03:44
09/10/23 03:44
Physical Exam
-
General: No Acute Distress
Abdomen: Soft, Distended (minimal) and Tender (expected)
Skin: Warm and Dry
Incision: Clear, Dry, Intact
[2023-09-10 11:32] LABS: Glucose - Point of Care 118 mg/dl (70-99)
[2023-09-10 11:39] VITALS: BP 122/63
[2023-09-10 15:34] VITALS: BP 147/75
[2023-09-10 16:35] LABS: Glucose - Point of Care 155 mg/dl (70-99)
[2023-09-10] MEDS: LIPITOR 40 MG PO (16:51)
[2023-09-10] MEDS: LOVENOX 40 MG SC (17:02)
[2023-09-10 21:29] LABS: Glucose - Point of Care 128 mg/dl (70-99)
[2023-09-10] MEDS: REMERON 30 MG PO (22:32)
[2023-09-10 23:38] VITALS: BP 117/65
[2023-09-11] MEDS: TYLENOL PO ×6 (00:32→20:46)
[2023-09-11] MEDS: TORADOL 10 MG IV ×2 (00:35→05:34)
[2023-09-11] MEDS: NOVOLOG FLEXPEN-LOW RESISTANCE SC ×2 (05:38→22:57)
[2023-09-11 06:00] VITALS: BMI 22.1
[2023-09-11 06:48] LABS: Hematocrit 26.2 % (37.0-47.0); Hemoglobin 8.8 g/dL (12.0-16.0); Mean Corp Hgb Conc. 33.6 g/dL (33.0-37.0); Mean Corpuscular Hgb 25.2 pg (27.0-31.0); Mean Corpuscular Volume 75.1 fL (81.0-99.0); Mean Platelet Volume 10.3 fL (7.4-10.4); Platelet Count 278 10^3/uL (130-400); Red Blood Cell Count 3.49 10^6/uL (4.20-5.40); Red Cell Dist. Width 19.4 % (11.5-14.5); White Blood Cell Count 6.6 10^3/uL (4.8-10.8)
[2023-09-11 07:07] LABS: Blood Urea Nitrogen 13 mg/dl (7-17); Calcium 7.4 mg/dl (8.4-10.2); Carbon Dioxide 28 mmol/L (22-30); Chloride 109 mmol/L (98-107); Estimated Creatinine Clearance 40 ml/min; Glucose 105 mg/dl (70-99); Magnesium 2.4 mg/dl (1.6-2.3); Phosphorus 2.4 mg/dl (2.5-4.5); Potassium 3.4 mmol/L (3.5-5.1); Sodium 138 mmol/L (135-145)
[2023-09-11 07:20] VITALS: BP 138/107
[2023-09-11 07:46] LABS: Glucose - Point of Care 110 mg/dl (70-99)
--- NOTE | 2023-09-11 09:14 | W.PN.HOSP.TC ---
Today's Communication/Plan
-
see bold
Assessment / Plan
Assessment / Plan
Gen: NAD, Awake and alert
Eyes: EOMI, PERRLA, no scleral icterus.
Neck: supple.
CV: RRR, +S1/S2, no m/r/g.
Resp: CTAB, no rales, wheezes, or rhonchi.
Abd: +BS, soft, NT to light palpation, ND
Skin: No rashes.
Neuro: CN 2-12 intact, non-focal.
Psych: Normal mood and affect.
CT C/A/P w/IV 09/07/23:
1. As noted previously and there is an area of abnormality involving the descending colon suspicious for malignancy.
2. Low-attenuation foci in the liver are unchanged and likely multiple hepatic cysts.
3. Tiny low-attenuation foci seen in both kidneys are likely small cysts but too small to accurately characterize
4. Linear band in the right upper lobe is likely atelectasis versus scarring
Nearly Obstructing Colon Mass, likely malignancy:
-s/p robotic left colectomy with takedown of splenic flexure on 09/09/23
-CEA 4.78
-CT C/A/P without obvious metastatic disease
-clears
-CRS primary
Iron deficiency anemia:
-With mass in the colon there is likely a component of chronic blood loss anemia
-s/p 2U pRBCs
-trend Hb
-B12 406, Folate 10.4, iron 36, ferritin 10.2, 11% saturation
Non-AG met acidosis:
-resolved with bicarb gtt
Hypokalemia and hypophosphatemia:
-K-phos
DM2:
-Continue Accu-Cheks with SSI
-Hba1c 6.8
-Continue to hold metformin
Elevated LFTs, holding statin, improving
Insomnia
DNR/Lovenox
Anticipated Discharge: 24 - 48 hours
Subjective/Interval History
-
Date of Service: September 11, 2023
No new complaints. Abdominal pain better than yesterday. Tolerating clears.
Objective Data
-
Labs:
Laboratory Results
09/11/23
06:07
WBC 6.6
Hgb 8.8 L
Hct 26.2 L
Plt Count 278
Sodium 138
Potassium 3.4 L
Chloride 109 H
Carbon Dioxide 28
BUN 13
Creatinine 1.0
Glucose 105 H
Calcium 7.4 L
Vital Signs:
Vital Signs
Temp Pulse Resp BP Pulse Ox
97.8 F 72 16 138/107 95
09/11/23 07:20 09/11/23 07:20 09/11/23 07:20 09/11/23 07:20 09/11/23 07:20
I&O
09/10/23 09/11/23 09/12/23
06:59 06:59 06:59
Intake Total 100 / 100 660 / 660
Output Total 775 / 775
Balance -675 / -675 660 / 660
[2023-09-11] MEDS: POTASSIUM PHOSPHATE 259.090899999999976 MEQ IV (09:19)
[2023-09-11] MEDS: PROTONIX 40 MG PO (09:23)
[2023-09-11] MEDS: ENTEREG 12 MG PO ×2 (09:23→20:05)
--- NOTE | 2023-09-11 10:48 | W.PN.GS2 ---
Today's Communication / Plan
-
No changes today, will keep on clear liquid diet.
Out of bed and ambulate.
Assessment / Plan
-
This is an 83-year-old female postoperative day 2 status post robotic left colectomy for colon cancer. Doing well, expected postoperative course.
Remains slightly distended with minimal return of bowel function will keep on clear liquids for now.
Remainder of care per primary.
Colorectal surgery will continue to follow
Time Spent
Total Time Spent with Patient (in minutes): 20
Subjective Data
-
Date of Service: September 11, 2023
Interval Events:
No acute events overnight. Slept well. Pain Controlled. Denies Nausea/Vomiting, -bowel function. Tolerating diet. History taken with the assistance of the patient's daughter
Objective Data
-
Intake and Output
09/10/23 09/11/23 09/12/23
06:59 06:59 06:59
Intake Total 100 / 100 660 / 660
Output Total 775 / 775
Balance -675 / -675 660 / 660
Intake:
Oral fluids 660 / 660
IV fluids (Total) 100 / 100
normo 100 / 100
Output:
Urine, Hedrick 775 / 775
Other:
Number of approximated MODERATE 2
amounts of urine
Number of approximated LARGE 1
amounts of urine
Vital Signs
Temp Pulse Resp BP Pulse Ox
97.8 F 72 16 138/107 95
09/11/23 07:20 09/11/23 07:20 09/11/23 07:20 09/11/23 07:20 09/11/23 07:20
Lab Results
09/11/23 06:07
Calcium 7.4 mg/dl (8.4-10.2) L 09/11/23 06:07
Phosphorus 2.4 mg/dl (2.5-4.5) L 09/11/23 06:07
Magnesium 2.4 mg/dl (1.6-2.3) H 09/11/23 06:07
Total Bilirubin 0.9 mg/dl (0.2-1.3) 09/10/23 03:44
AST 47 U/L (14-36) H 09/10/23 03:44
ALT 30 U/L (0-35) 09/10/23 03:44
Alkaline Phosphatase 193 U/L (38-126) H 09/10/23 03:44
Total Protein 6.2 g/dl (6.3-8.2) L 09/10/23 03:44
Albumin 2.7 g/dl (3.5-5.0) L 09/10/23 03:44
Physical Exam
-
GENERAL/NEURO: Awake, Alert, no distress
CHEST: Unlabored breathing on RA
ABDOMEN: Soft, Non-Tender, mildly distended, incisions clean dry and intact.
[2023-09-11 11:43] LABS: Glucose - Point of Care 164 mg/dl (70-99)
[2023-09-11] MEDS: NOVOLOG FLEXPEN-LOW RESISTANCE 1 UNITS SC ×2 (12:38→16:47)
[2023-09-11 13:41] LABS: Hematocrit 28.7 % (37.0-47.0); Hemoglobin 9.3 g/dL (12.0-16.0)
[2023-09-11 14:57] VITALS: BP 164/95
--- NOTE | 2023-09-11 15:47 | PTCARENOTE ---
TT with ortho and hospitalist regarding pt experiencing slight dizziness when standing. BP on return from walk 166/98 121hr. Later nurse sat her at bedside prior to another walk and she stated she felt dizzy BP 164/95 hr 94 spo2 95%. most recent Hg
9.3 (8.8). Dr. Lyles would like to monitor for now. Current BP 170/87 99hr at rest on chair. did let doctor know. Orthostatics ordered
[2023-09-11 16:08] VITALS: BP 154/91; BP 170/87; BP 199/106; PULSE 105; PULSE 96; PULSE 99
[2023-09-11 16:44] LABS: Glucose - Point of Care 176 mg/dl (70-99)
[2023-09-11] MEDS: LIPITOR 40 MG PO (16:47)
[2023-09-11] MEDS: TORADOL IV (17:20)
[2023-09-11] MEDS: LOVENOX 40 MG SC (20:04)
[2023-09-11 21:54] LABS: Glucose - Point of Care 143 mg/dl (70-99)
[2023-09-11] MEDS: REMERON 30 MG PO (22:58)
[2023-09-11 23:40] VITALS: BP 154/80
[2023-09-12] MEDS: TYLENOL PO ×3 (00:21→12:29)
[2023-09-12] MEDS: TORADOL IV ×3 (00:21→12:30)
[2023-09-12 03:55] VITALS: BMI 22.8
[2023-09-12 07:31] LABS: Hematocrit 26.2 % (37.0-47.0); Hemoglobin 8.7 g/dL (12.0-16.0)
[2023-09-12 07:39] VITALS: BP 182/85
[2023-09-12 07:40] LABS: ALT (SGPT) 28 U/L (0-35); AST (SGOT) 60 U/L (14-36); Albumin 2.2 g/dl (3.5-5.0); Alkaline Phosphatase 217 U/L (38-126); Blood Urea Nitrogen 8 mg/dl (7-17); Calcium 7.5 mg/dl (8.4-10.2); Carbon Dioxide 28 mmol/L (22-30); Chloride 106 mmol/L (98-107); Estimated Creatinine Clearance 57 ml/min; Glucose 121 mg/dl (70-99); Potassium 3.3 mmol/L (3.5-5.1); Sodium 138 mmol/L (135-145); Total Bilirubin 0.9 mg/dl (0.2-1.3); Total Protein 5.3 g/dl (6.3-8.2); eGFR > 60.00
[2023-09-12 08:11] LABS: Glucose - Point of Care 115 mg/dl (70-99)
[2023-09-12] MEDS: NOVOLOG FLEXPEN-LOW RESISTANCE SC (09:00)
[2023-09-12] MEDS: PROTONIX 40 MG PO (09:03)
[2023-09-12] MEDS: ENTEREG 12 MG PO (09:03)
[2023-09-12] MEDS: TYLENOL 650 MG PO (09:04)
--- NOTE | 2023-09-12 09:08 | W.PN.HOSP.TC ---
Today's Communication/Plan
-
see bold
Assessment / Plan
Assessment / Plan
Gen: NAD, Awake and alert
Eyes: EOMI, PERRLA, no scleral icterus.
Neck: supple.
CV: remains RRR, +S1/S2, no m/r/g.
Resp: remains CTAB, no rales, wheezes, or rhonchi.
Abd: remains +BS, soft, NT to light palpation, ND
Skin: No rashes.
Neuro: CN 2-12 intact, non-focal.
Psych: Normal mood and affect.
CT C/A/P w/IV 09/07/23:
1. As noted previously and there is an area of abnormality involving the descending colon suspicious for malignancy.
2. Low-attenuation foci in the liver are unchanged and likely multiple hepatic cysts.
3. Tiny low-attenuation foci seen in both kidneys are likely small cysts but too small to accurately characterize
4. Linear band in the right upper lobe is likely atelectasis versus scarring
Nearly Obstructing Colon Mass, likely malignancy:
-s/p robotic left colectomy with takedown of splenic flexure on 09/09/23
-CEA 4.78
-CT C/A/P without obvious metastatic disease
-clears
-CRS primary
Elevated BPs:
-ok to monitor at this time
-treat pain adequately
-outpt f/u with PCP
Iron deficiency anemia:
-With mass in the colon there is likely a component of chronic blood loss anemia
-s/p 2U pRBCs
-trend Hb
-B12 406, Folate 10.4, iron 36, ferritin 10.2, 11% saturation
Hypokalemia and hypophosphatemia:
-PO K
-Mg/Phos normal
DM2:
-Continue Accu-Cheks with SSI
-Hba1c 6.8
-Continue to hold metformin
Other problems:
Elevated LFTs, holding statin, improving
Insomnia
Non-AG met acidosis: resolved with bicarb gtt
DNR/Lovenox
From my standpoint there are no barriers to discharge (cleared by me).
Anticipated Discharge: Today
Subjective/Interval History
-
Date of Service: September 12, 2023
No new complaints.
Objective Data
-
Labs:
Laboratory Results
09/12/23
05:13
Hgb 8.7 L
Hct 26.2 L
Sodium 138
Potassium 3.3 L
Chloride 106
Carbon Dioxide 28
BUN 8
Creatinine 0.7
Glucose 121 H
Calcium 7.5 L
Total Bilirubin 0.9
AST 60 H
ALT 28
Alkaline Phosphatase 217 H
Vital Signs:
Vital Signs
Temp Pulse Resp BP Pulse Ox
98.2 F 78 16 182/85 93
09/12/23 07:39 09/12/23 07:39 09/12/23 07:39 09/12/23 07:39 09/12/23 07:39
I&O
09/11/23 09/12/23 09/13/23
06:59 06:59 06:59
Intake Total 660 / 660 1575 / 1575
Balance 660 / 660 1575 / 1575
[2023-09-12 09:09] VITALS: BP 150/89
[2023-09-12 09:57] LABS: Magnesium 2.3 mg/dl (1.6-2.3); Phosphorus 2.7 mg/dl (2.5-4.5)
[2023-09-12] MEDS: KLOR-CON 40 MEQ PO (10:40)
--- NOTE | 2023-09-12 11:07 | CM ---
Patient seen at bedside with patient daughter also present. Patient plan is home with family, daughter would provide transportation. Patient for PT/OT assessment and pending recommendation, daughter is open to VN supports at home. CM tt with PA and
update provided to nursing. Patient daughter is aware of possible discharge pending attending assessment.
Plan; home with VN vs home with no needs.
[2023-09-12 11:41] VITALS: BP 161/103; BP 164/100; BP 171/95; PULSE 83; PULSE 88; PULSE 97
[2023-09-12 12:00] LABS: Glucose - Point of Care 168 mg/dl (70-99)
--- NOTE | 2023-09-12 12:25 | W.PN.CRS1 ---
Addendum entered and electronically signed by Shadi Segundo MD 09/22/23 10:59:
Of note, after discharge the pathology came back with 09/20 lymph nodes positive for adenocarcinoma making metastasis to lymph node a valid diagnosis.
Addendum entered and electronically signed by Shadi Segundo MD 09/12/23 15:16:
Of note, Mild malnutrition�was present on admission and is still being monitored, evaluated or treated.
Addendum entered and electronically signed by Shadi Segundo MD 09/12/23 14:36:
I saw and examined the patient.
The PA's note was reviewed and I agree with the note.
Comment:
Seen in am with PA.
Tolerating diet. Passing flatus.
Vitals and labs ok.
Incisions looked good.
K repleted.
Potential discharge.
Original Note:
Today's Communication / Plan
-
PT/OT
possible d/c today
Assessment/Plan
-
POD#3 status post robotic left colectomy for colon cancer
1. Vitals normal.
2. Hgb 8.7. No need for transfusion.
3. Potassium 3.3. 40meq given this AM.
4. OOB with PT/OT.
5. Continue low residue diet.
6. OR pathology pending.
7. Lovenox for DVT prophylaxis.
8. Pain medication: Tylenol/Toradol standing, Ultram PRN.
9. Possible d/c later today. Will be evaluated with PT/OT for determination.
Subjective Data
Procedure
�1) robotic left colectomy 2) takedown splenic flexure
Subjective Data
Date of Service: September 12, 2023
Patient states she has no nausea or vomiting. She denies pain. She is having bowel movements and flatus. She is tolerating a diet.
Objective Data
-
Vital Signs
Temp Pulse Resp BP Pulse Ox
98.2 F 89 16 150/89 93
09/12/23 07:39 09/12/23 09:09 09/12/23 07:39 09/12/23 09:09 09/12/23 07:39
Intake & Output
09/11/23 09/12/23 09/13/23
06:59 06:59 06:59
Intake Total 660 / 660 1575 / 1575
Balance 660 / 660 1575 / 1575
Intake:
Oral fluids 660 / 660 960 / 960
IV fluids (Total) 345 / 345
IV piggybacks 270 / 270
Other:
Number of approximated MODERATE 2 2
amounts of urine
Number of approximated LARGE 1
amounts of urine
Number of unmeasured liquid
stools
Rectum 1
Lab Results
09/12/23 05:13
09/12/23 05:13
Physical Exam
-
General: No Acute Distress and AOx3
Abdomen: Soft, Non Distended and Non Tender
Skin: Warm and Dry
Incision: Clear, Dry, Intact
[2023-09-12] MEDS: NOVOLOG FLEXPEN-LOW RESISTANCE 1 UNITS SC (12:27)
[2023-09-12 12:38] VITALS: BP 171/95; PULSE 80; O2SAT 98
--- NOTE | 2023-09-12 14:24 | W.DS.TRANS ---
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
-
Discharge Instructions:
Discharge Diagnosis/Procedures 1) robotic left colectomy 2) takedown splenic
flexure
Diet Low Residue
Activity No strenuous activity
Additional Activity No lifting over 10lbs (gallon of milk)
Driving Restrictions Not until seen by your Dr
Bathing Restrictions OK to Shower
Blood Work BMP in 1 week
Wound Care Allow glue to naturally fall off. Do not pick at
incisions.
Instructions: Low Fiber Diet
Stand-Alone Forms:
Changes to Home Medications: Yes
Discharge Medications:
DC Medications w/original date entered in [facility]
atorvastatin 40 mg tablet (Lipitor) 40 mg PO QPM High Cholesterol 09/07/23
metformin 500 mg tablet 500 mg PO BID@0800,1700 Diabetes 09/07/23
mirtazapine 30 mg tablet 30 mg PO Mental Health 09/07/23
acetaminophen 325 mg capsule 650 mg PO Q6H PRN pain #90 caps 09/12/23
potassium chloride 20 mEq oral packet 20 meq PO DAILY 30 days #30 ea 09/12/23
Home Medication Changes
New medications:
acetaminophen 325 mg capsule 650 mg PO Q6H PRN pain #90 caps 09/12/23
potassium chloride 20 mEq oral packet 20 meq PO DAILY 30 days #30 ea 09/12/23
Stop:
Colace
Pending Results: Yes
Additional Pending Results:
OR pathology
--- NOTE | 2023-09-12 14:45 | CM ---
Patient seen by pt/ot who did not have any post acute recommendations for VN. Per nursing patient daughter plans to return and is aware of planned discharge. Patient does not have MC per daughter only MA. CM will continue to follow for discharge
planning needs.
Plan; discharge home with no needs.
--- NOTE | 2023-09-12 14:57 | PN.CDI ---
CDI
- -
CDI:
Physician Documentation Request
Admit Date: 09/07/23 13:05
Dear Colorectal,
Please review the following and provide your response in the progress notes.
Clinical Indicators:
The diagnosis of mild malnutrition was documented on H&P.
- 09/07 H&P 'slightly higher risk of anastomotic issues due to mild malnutrition'
- 09/08 Colorectal note 'evidence of mild malnutrition with prealbumin of 13 and albumin of 2.9'
- 09/08 Ground Control Approach Technician note 'inadequate energy intake due to inability to consume food, beverages'
- 'Reported weight loss'
- BMI 22.8 - normal range
- No other ASPEN criteria met
Please clarify the following regarding malnutrition:
____ - Mild malnutrition was present on admission and is now resolved.
____ - Mild malnutrition was present on admission and is still being monitored, evaluated or treated
____ - Mild malnutrition was ruled out
____ - Mild malnutrition is still a likely, suspected, probable diagnosis
____ - Other
[place] Criteria ([employer] Hospitalist 2017)
2 or more criteria must be present for either
non severe or severe malnutrition
Note that the criteria differs related to the
presence of an acute or chronic illness
Acute Illness Chronic Illness
Energy Intake Non Severe: <75% for >7 days Non Severe: <75% for >1 month
Severe: <50% for >5 days Severe: <75% for >1 month
Weight Loss Non Severe: 1-2% over 1 week Non Severe: 5% over 1 month
5% over 1 month 7.5% over 3 months
7.5% over 3 months 10% over 6 months
1 year N/A 20% over 1 year
Severe: >2% over 1 week Severe: >5% over 1 month
>5% over 1 month >7.5% over 3 months
>7.5% over 3 months >10% over 6 months
1 year N/A >20% over 1 year
Body Fat Non Severe: Mild Decrease Non Severe: Mild Loss
Severe: Moderate Decrease Severe: Severe Loss
Muscle Mass Non Severe: Mild Decrease Non Severe: Mild Loss
Severe: Moderate Decrease Severe: Severe Loss
Fluid Accumulation Non Severe: Mild Accumulation Non Severe: Mild Accumulation
Severe: Moderate to severe Severe: Moderate to severe
accumulation accumulation
Reduced Forest Economics Professor Strength Non Severe: N/A Non Severe: N/A
Severe: Measurably reduced Severe: Measurably reduced
Additional criteria that can be used to Determine if Mild or Moderate Malnutrition (Merck Manual 2018)
Mild Moderate Severe
Albumin gm/dl <3.0 gm/dl <2.5 gm/dl <2.0 gm/dl
Pre Albumin mg/dl <15 gm/dl <10 mg/dl <5.0 mg/dl
BMI <18.5 <17 <16
Use of terms such as suspected, likely, concern for, or probable (associated with a specific diagnosis that is being evaluated, monitored, or treated as if it exists) are acceptable and can be coded in the inpatient setting, when documented at the
time of discharge.
Thank you,
Ervin Ochoa RN
CDI Specialist
Please use your independent medical judgment in providing your response.
--- NOTE | 2023-09-22 08:38 | PN.CDI ---
CDI
- -
CDI:
Physician Documentation Request
Admit Date: 09/07/23 13:05
Dear Doctor Sanya,
Please review the following and provide your response in the progress notes.
Clinical Indicators:
The pathology report became available after the patient was discharged. According to inpatient coding guidelines, we cannot code directly from the path report without physician confirmation.
The diagnosis of one out of thirty lymph nodes, positive for metastatic carcinoma (30) was included in the signed path report.
Please indicate in your progress notes if you are in agreement that the above diagnosis is valid for this patient:
____ - Metastatic lymph nodes is a valid diagnosis (Please include it in your progress notes)
____ - Metastatic lymph nodes is not a valid diagnosis for this patient
____ - Metastatic lymph nodes is not yet confirmed but remains a suspected condition
____ - Other
____ - Unable to determine
Use of terms such as suspected, likely, concern for, or probable are acceptable for a diagnosis that is being evaluated, monitored or treated as if it exists and can be coded in the inpatient setting, when documented at the time of discharge.
Thank you,
Jess Lee
Ticket Maker
Please use your independent medical judgment in providing your response.
== END 2023-09-12 16:45 | disposition home or self-care (01) | DRG 330 ==
LOC: 2 SOUTH 13:05
PROVIDERS: Hospitalist; Physician Assistant; Registered Nurse; ADMITTING PHYSICIAN Surgery; CONSULT PHYSICIAN Internal Medicine; EMERGENCY PHYSICIAN Emergency Medicine; FAMILY PHYSICIAN Family Medicine
PROC: 8E0W4CZ Robotic Assisted Procedure of Trunk Region, Percutaneous Endoscopic Approach (ICD-10-PCS; 2023-09-09)
PROC: 0DTG4ZZ Resection of Left Large Intestine, Percutaneous Endoscopic Approach (ICD-10-PCS; 2023-09-09)
DX: C18.5 Malignant neoplasm of splenic flexure (principal); C77.2 Secondary and unspecified malignant neoplasm of intra-abdominal lymph nodes; E44.1 Mild protein-calorie malnutrition; E87.20 Acidosis, unspecified; R74.01 Elevation of levels of liver transaminase levels; E11.9 Type 2 diabetes mellitus without complications; I10 Essential (primary) hypertension; D50.0 Iron deficiency anemia secondary to blood loss (chronic); E78.5 Hyperlipidemia, unspecified; Z68.22 Body mass index [BMI] 22.0-22.9, adult; Z79.84 Long term (current) use of oral hypoglycemic drugs
CPT/HCPCS: 88309; 36430; 71260; 74177; 80048; 80053; 81459; 82378; 82607; 82728; 82746; 82962; 83036; 83540; 83550; 83735; 84100; 84134; 85014; 85018; 85025; 85027; 85610; 85730; 86850; 86900; 86901; 86920; 93005; 96360; 96361; 97162; 99285; J1335; P9016; Q9967

== ENCOUNTER 2024-04-28 19:22 | Inpatient (IN) | payer MEDICAID, SELFPAY ==
[2024-04-28] VITALS (7 sets, daily range): BP systolic 127–184; BP diastolic 84–106; BMI 22.4
--- NOTE | 2024-04-28 16:30 | ED.GENMED ---
History of Present Illness
General
Chief Complaint: Musculo-Skeletal Complaint
Source: patient and family
Exam Limitations: other (Pt does not speak Luxembourgish. She was given the option of using an box printing machine operator brought preferred to use her daughter as box printing machine operator)
Time Seen by Provider: 04/28/24 16:08
Nursing documentation reviewed up to this point in time: agreed with
History of Present Illness
History of Present Illness:
83-year-old female presenting to the emergency department today after a ground-level fall where she tripped over a cord on the ground in the garage landed on her right hip and right wrist. Did not hit her head not on blood thinners no loss of
consciousness unable to walk since.
Past History
Past History
ED Past Medical History: None
ED Past Surgical History:
Social History
Tobacco: Non-smoker
Alcohol: None
Personal: Single
Living: with family
Review of Systems
Review of Systems
Allergies reviewed?: Yes
All Other Systems: ROS reviewed and negative except as documented in HPI and ROS
Phy Exam
Physical Exam
Physical Exam:
GENERAL: Alert , in no apparent distress
EYE: pupils equal and reactive
NECK: Supple, no significant adenopathy.
ENT: o/p clr, mmm.
CARDIAC: Regular rate and rhythm .
LUNGS: Clear breath sounds bilaterally, no acute respiratory distress, no wheezes/rales/rhonchi
ABDOMEN: Soft, without focal tenderness, no r/g, no cvat
NEUROLOGICAL: Alert and oriented, no focal neuro deficits
SKIN: Warm and dry, skin intact.
MUSCULOSKELETAL: No edema, well perfused.
PSYCH: Normal and appropriate interaction.
Course
Orders/Labs/Results
Orders:
Orders
04/28/24 16:22
CR Wrist - Right Min 3 Views Urgent
Comment:
Reason For Exam: right wrist pain after fall
Hip, Right 2-3 Views [CR Hip - RT w/wo Pel 2-3 Vw*] Urgent
Comment:
Reason For Exam: right hip pain after fall
Include a pelvis x-ray?: Yes
04/28/24 18:03
BMP [Basic Metabolic Panel] Urgent
CBC/With Diff [Complete Blood Count/With Diff] Urgent
04/28/24 18:17
CR Femur - Right Min 2 Vw Urgent
Comment:
Reason For Exam: hip fx, ortho request
Vital Signs
Initial and Last Documented VS:
Initial Vital Signs
Temp Pulse Resp BP Pulse Ox
97.8 F 79 16 184/106 97
04/28/24 15:59 04/28/24 15:59 04/28/24 15:59 04/28/24 15:59 04/28/24 15:59
Last Documented Vital Signs
Temp Pulse Resp BP Pulse Ox
97.8 F 79 16 176/96 94
04/28/24 15:59 04/28/24 15:59 04/28/24 15:59 04/28/24 17:00 04/28/24 17:30
Procedures
Splinting/Sling Placement
Right Wrist:
Procedure completed by: Myself/tech
Pre-splint extermity exam: good alignment
Type of splint: sugar-tong
Splint material: fiberglass
Splint checked by provider?: Yes
Type of sling: sling fitted
Normal distal neurovascular exam?: Yes
MDM/Problems Addressed
MDM/Problems Addressed:
83-year-old female presenting to the emergency department after ground-level fall tripping over a cord in the garage fell directly on her right hip and right wrist. Pain to both areas since did not hit her head is not on blood thinners. Has not
been able to walk since. Neuro vastly intact on examination tenderness mainly to the area lateral to the proximal femur. X-ray performed showing a proximal femur fracture as well as a wrist fracture wrist was splinted with sugar-tong splint. Hip
fracture was discussed with Ortho will be admitted for surgical correction. Stable throughout ER stay.
*Critical Care Note
Total Time (30-74mins, 75-104mins- exclusive of procedures): Not Applicable
ED Attending Note
-
Portions of this chart may have been created with voice recognition software.� Occasional wrong word or��sound alike� substitutions may have occurred due to the inherent limitations of voice recognition software.
Discharge Plan
Departure
Patient Disposition: Admit
Date of Disposition: 04/28/24
Time of Disposition: 18:45
Admit to: Med/Surg
Admit to doctor: Kimberley
Presentation/result/management discussed w/ accepting MD/DO: Hospitalist
Patient with high blood pressure during this ER visit?: Yes
Condition: Good
Covid-19: Not Applicable
Discharge Problem:
Closed fracture of right hip, Fracture of right wrist
Prescriptions:
No Action
atorvastatin [Lipitor] 40 mg Tablet
40 mg PO QPM
metformin 500 mg Tablet
500 mg PO BID@0800,1700
mirtazapine 30 mg Tablet
30 mg PO HS
potassium chloride 20 mEq packet
20 meq PO DAILY 30 Days Qty: 30 0RF
acetaminophen 325 mg capsule
650 mg PO Q6H PRN (Reason: pain) Qty: 90 0RF
Referrals:
Kathleen Rhodes DO [Family Provider] -
Interventions
Interventions:
ED-Musculoskeletal Assessment Last Done: 04/28/24 17:03
Discharge Date and Time
Print Language: MOSOTHO
--- NOTE | 2024-04-28 18:52 | HPS.HSE ---
Family Physician
-
Family Physician: Kathleen Rhodes DO
Chief Complaint
-
fall
History of Present Illness
83-year-old Mandarin speaking female past medical history of ascending colon mass status post left colectomy, diabetes, hyperlipidemia, anxiety/depression, iron deficiency anemia, presenting after a ground-level fall when she tripped over a cord on
the ground in the garage and landed on her right hip and right wrist. She did not hit her head. She has been unable to walk since then. She has
No chest pain or shortness of breath or dizziness. No history of heart disease. No difficulties with anesthesia in the past.
No smoking or alcohol use.
Medical History
Past Medical History
Past Medical History: Reports Other (ascending colon mass status post left colectomy, diabetes, hyperlipidemia, anxiety/depression, iron deficiency anemia)
Past Surgical History: Reports None
Social History
Tobacco: Non-smoker
Alcohol: None
Drug: None
Family History
Family History: Not pertinent
Allergies / Home Medications
Allergies reflects when Allergies were last updated in [facility].
Home Medications with original date entered in [facility]
Allergy/Medication List:
Allergies
Allergy/AdvReac Type Severity Reaction Status Date / Time
No Known Allergies Allergy Verified 09/07/23 10:43
Home Medications
atorvastatin 40 mg tablet (Lipitor) 40 mg PO QPM High Cholesterol 09/07/23
metformin 500 mg tablet 500 mg PO BID@0800,1700 Diabetes 09/07/23
mirtazapine 30 mg tablet 30 mg PO Mental Health 09/07/23
acetaminophen 325 mg capsule 650 mg (2 x 325 mg) PO Q6H PRN pain #90 caps 09/12/23
potassium chloride 20 mEq oral packet 20 meq PO DAILY 30 days #30 ea 09/12/23
Review of Systems
-
History Source: Patient
A 12 point ROS was completed and negative except as noted: Yes
Constitutional: Reports No Symptoms
EENT: Reports No Symptoms
Respiratory: Reports No Symptoms
Cardiac: Reports No Symptoms
Abdomen/GI: Reports No Symptoms
: Reports No Symptoms
Musculoskeletal: Reports See HPI
Skin: Reports No Symptoms
Neurological: Reports No Symptoms
Endocrine: Reports No Symptoms
Hematologic/Lymphatic: Reports No Symptoms
Psych: Reports No Symptoms
Physical Exam
Vital Signs
Vital Signs
Temp Pulse Resp BP Pulse Ox
97.8 F 79 16 176/96 94
04/28/24 15:59 04/28/24 15:59 04/28/24 15:59 04/28/24 17:00 04/28/24 17:30
Physical Exam
General: Well Developed, Well Nourished and No Apparent Distress
HEENT: NormoCephalic, Moist mucous membranes and Atraumatic
Respiratory: Clear
Cardiac: S1/S2 and Regular Rhythm; No Murmur or Rub
GI: Soft, Non Tender, Non Distended and Normal Bowel Sounds; No Organomegaly
Rectal: Deferred by Provider
Musculoskeletal: No Clubbing, No Cyanosis and No Edema
Skin: No Rash
Neuro: Nonfocal/grossly intact
Data Reviewed
-
Lab Data: Labs Reviewed by me
Old Records: Reviewed
Impression/Plan
-
IMPRESSION:
PLAN:
# Right hip fracture
-Ortho consulted
-Tylenol, tramadol for pain
# Right wrist fracture
-Splint to be placed
Ascending colon mass status post left colectomy
Chronic iron deficiency anemia secondary to blood loss from ascending colon mass
-CBC pending
Type 2 diabetes
-Hold metformin
-Insulin sliding scale
Hyperlipidemia
-Continue statin
Anxiety/depression
-Continue mirtazapine
DNR/DNI
DVT prophylaxis�SCDs
Regular diet
[2024-04-28 18:55] LABS: % Basophils 0.7 % (0-2); % Eosinophils 0.5 % (0-6); % Immature Granulocytes 0.3 % (0-0.5); % Lymphocytes 23.4 % (20.5-51.1); % Monocytes 9.6 % (1.7-9.3); % Neutrophils 65.5 % (42.2-75.2); Absolute Lymphocytes 1.4 10^3/uL (1.2-3.4); Absolute Monocytes 0.6 10^3/uL (0.1-0.6); Hematocrit 32.2 % (37.0-47.0); Hemoglobin 10.9 g/dL (12.0-16.0); Mean Corp Hgb Conc. 33.9 g/dL (33.0-37.0); Mean Corpuscular Hgb 30.5 pg (27.0-31.0); Mean Corpuscular Volume 90.2 fL (81.0-99.0); Mean Platelet Volume 12.6 fL (7.4-10.4); Nucleated Red Blood Cells % 0 %; Platelet Count 192 10^3/uL (130-400); Red Blood Cell Count 3.57 10^6/uL (4.20-5.40); Red Cell Dist. Width 17.5 % (11.5-14.5); White Blood Cell Count 6.2 10^3/uL (4.8-10.8)
--- NOTE | 2024-04-28 19:22 | CON.ORTHO ---
Consultation - Orthopedics
History
HPI: 83-year-old female history of colon adenocarcinoma who presented to the emergency department status post mechanical fall at home with complaints of right hip pain and inability to bear weight. She was subsequently diagnosed with a displaced
right peritrochanteric femur fracture. There was concern for possible right distal radius fracture as well. She was splinted right wrist admitted to the hospital service and orthopedics was consulted. Patient is mandrin speaking only her daughter
is at bedside who aids in translation. Report that she was in her garage at home when she tripped and fell this afternoon. She reports pain localized to the right hip is made worse with attempted ambulation motion of the right hip. They report
that she does not use any ambulatory assistive devices. They report that she has a history of a colon mass that was removed in August but they declined any further treatment for adenocarcinoma.
Allergies / Home Medications
Past medical history: Colon cancer, diabetes, hyperlipidemia,
Past surgical history: Colectomy
Family history: Not pertinent
Social history: Lives at home with family community ambulator
Allergy/AdvReac Type Severity Reaction Status Date / Time
No Known Allergies Allergy Verified 09/07/23 10:43
�Medication �Instructions �Recorded
atorvastatin 40 mg tablet (Lipitor) 40 mg PO QPM High Cholesterol 09/07/23
metformin 500 mg tablet 500 mg PO BID@0800,1700 Diabetes 09/07/23
mirtazapine 30 mg tablet 30 mg PO Mental Health 09/07/23
acetaminophen 325 mg capsule 650 mg (2 x 325 mg) PO Q6H PRN 09/12/23
pain #90 caps
potassium chloride 20 mEq oral 20 meq PO DAILY 30 days #30 ea 09/12/23
packet
Vital Signs / Lab Results
Temp Pulse Resp BP Pulse Ox
97.8 F 84 23 176/96 94
04/28/24 15:59 04/28/24 18:52 04/28/24 18:52 04/28/24 17:00 04/28/24 17:30
04/28/24 18:47
10 point review systems reviewed and negative unless otherwise stated
General: Pleasant, no acute distress at rest
Musculoskeletal right lower extremity
Skin intact, no erythema, no ecchymosis
Right lower extremity shortened externally rotated
Tenderness palpation over groin and lateral trochanteric flare
No palpable ipsilateral knee effusion
Positive EHL, FHL, ankle dorsiflexion, plantarflexion
Brisk cap refill distally
Right upper extremity sugar-tong splint in place
Exposed fingers warm sensate and mobile
No other areas of bony tenderness palpation crepitation of long bones or joints tertiary examination
Diagnostic studies
X-rays right hip and femur independently viewed by myself. There is evidence of a displaced peritrochanteric femur fracture. No visualized lytic lesions on my review. X-rays right wrist reviewed. Concern for disruption of the dorsal cortex
without significant displacement distal radius
Assessment / Plan
83-year-old female history of colon cancer status post fall with right peritrochanteric femur fracture. I do long detailed discussion with the family bedside regarding diagnosis and treatment options. Discussed with surgical nonsurgical options.
After discussion mutually to proceed with surgical intervention in form of cephalomedullary nail fixation. We discussed risks benefits alternatives of surgery. We discussed usual expected perioperative postoperative course. After discussion
written informed consent was obtained. No guarantees were given. Will plan for surgery tomorrow
Nonweightbearing right lower extremity
Continue nonweightbearing right upper extremity in sugar-tong splint for time being
N.p.o. at midnight
Pain control
DVT prophylaxis: Please hold preparation for OR
Medical management per primary team
Plan: 2 OR tomorrow for operative fixation right peritrochanteric femur fracture pending OR availability and medical clearance
[2024-04-28 19:53] LABS: Blood Urea Nitrogen 11 mg/dl (7-17); Carbon Dioxide 21 mmol/L (22-30); Chloride 108 mmol/L (98-107); Glucose 158 mg/dl (70-99); Potassium 3.8 mmol/L (3.5-5.1); Sodium 141 mmol/L (135-145); eGFR > 60.00
[2024-04-28 21:48] LABS: Glucose - Point of Care 162 mg/dl (70-99)
[2024-04-28] MEDS: REMERON 30 MG PO (22:24)
[2024-04-29] VITALS (14 sets, daily range): BP systolic 103–149; BP diastolic 64–122; PULSE 86; O2SAT 92
--- NOTE | 2024-04-29 01:13 | PTCARENOTE ---
Pt arrived to 2S at 1955 via stretcher from ED. Pt is AAOX3. VSS. Pt is mandarin speaking only and pts daughter is at the bedside. Admission questions completed with the help of pts daughter. Pts R arm is splinted and wrapped in robert. Head to toe
assessment complete. Bed in lowest position and locked. Call oneil with in reach.
--- NOTE | 2024-04-29 01:20 | PTCARENOTE ---
at 0030 during hourly rounds it was found pt had removed splint and robert wrap. Splint and robert wrap re applied. Pt educated using water use inspector to leave splint and robert wrap in place.
[2024-04-29] MEDS: ULTRAM 50 MG PO (04:16)
--- NOTE | 2024-04-29 04:42 | PTCARENOTE ---
first set of CHG wipes done
[2024-04-29 06:01] LABS: Glucose - Point of Care 178 mg/dl (70-99)
[2024-04-29 06:12] LABS: % Basophils 0.4 % (0-2); % Immature Granulocytes 0.3 % (0-0.5); % Lymphocytes 22.4 % (20.5-51.1); % Monocytes 7.7 % (1.7-9.3); % Neutrophils 69.2 % (42.2-75.2); Absolute Lymphocytes 2.3 10^3/uL (1.2-3.4); Absolute Monocytes 0.8 10^3/uL (0.1-0.6); Absolute Neutrophils 7.2 10^3/uL (1.4-6.5); Hematocrit 28.4 % (37.0-47.0); Hemoglobin 9.7 g/dL (12.0-16.0); Mean Corp Hgb Conc. 34.2 g/dL (33.0-37.0); Mean Corpuscular Hgb 30.1 pg (27.0-31.0); Mean Corpuscular Volume 88.2 fL (81.0-99.0); Mean Platelet Volume 12.5 fL (7.4-10.4); Nucleated Red Blood Cells % 0 %; Platelet Count 198 10^3/uL (130-400); Red Blood Cell Count 3.22 10^6/uL (4.20-5.40); Red Cell Dist. Width 17.2 % (11.5-14.5); White Blood Cell Count 10.4 10^3/uL (4.8-10.8)
[2024-04-29 06:35] LABS: ALT (SGPT) 67 U/L (0-35); AST (SGOT) 123 U/L (14-36); Alkaline Phosphatase 199 U/L (38-126); Blood Urea Nitrogen 18 mg/dl (7-17); Calcium 8.3 mg/dl (8.4-10.2); Carbon Dioxide 20 mmol/L (22-30); Chloride 107 mmol/L (98-107); Estimated Creatinine Clearance 50 ml/min; Glucose 195 mg/dl (70-99); Potassium 4.6 mmol/L (3.5-5.1); Sodium 139 mmol/L (135-145); Total Bilirubin 1.6 mg/dl (0.2-1.3); Total Protein 7.7 g/dl (6.3-8.2); eGFR > 60.00
[2024-04-29 08:01] LABS: Glucose - Point of Care 157 mg/dl (70-99)
[2024-04-29] MEDS: NOVOLOG FLEXPEN-LOW RESISTANCE 1 UNITS SC (08:27)
--- NOTE | 2024-04-29 09:36 | PTCARENOTE ---
Addendum entered by Kaylyn Blas RN 04/29/24 15:17:
At 12:50 patient returned from PACU in bed, weaned off 02, VSS; 3 Primaseal dressings: (R) HIP (scant old drainage marked in PACU), (R) THIGH (c/d/i), (R) LATERAL KNEE (c/d/i)
Original Note:
Telephone report given to [employer] Hernandez @09:20; second CHF wipe completed @09:25; Transport took patient in bed with chart @09:36; patient's daughter arrived and stated she wanted to wait in the [facility] waiting area, called [employer] Hernandez and made aware.
--- NOTE | 2024-04-29 10:16 | W.PN.HOSP.TC ---
Today's Communication/Plan
-
pt seen in PACU
see A/P
Assessment / Plan
Assessment / Plan
HPI: 83-year-old Mandarin speaking female past medical history of ascending colon mass status post left colectomy, diabetes, hyperlipidemia, anxiety/depression, iron deficiency anemia, presented after a ground-level fall when she tripped over a cord
on the ground in the garage and landed on her right hip and right wrist.
She did not hit her head. She has been unable to walk since then.
A/P:
# mechanical fall with Right hip fracture
Pt is medically optimized for low to intermediate risk procedure. Benefit or procedure outweighs risk. Proceed with caution.
Ortho on board, s/p OR 04/29 Insertion right long cephalomedullary nail
pain control with Tylenol, tramadol
DVT ppx per surgery
PT OT when able to participate
# Right wrist fracture
Splint to be placed
# Ascending colon mass status post left colectomy
# Chronic iron deficiency anemia secondary to blood loss from ascending colon mass
CBC pending
# Type 2 diabetes
Hold metformin
Insulin sliding scale
# Hyperlipidemia
Continue statin
# Anxiety/depression
Continue mirtazapine
DNR/DNI
DVT prophylaxis�SCDs
updated daughter on the phone
Anticipated Discharge: > 48 hours
Subjective/Interval History
-
Date of Service: April 29, 2024
Objective Data
-
Labs:
Laboratory Results
04/29/24
05:41
WBC 10.4
Hgb 9.7 L
Hct 28.4 L
Plt Count 198
Sodium 139
Potassium 4.6
Chloride 107
Carbon Dioxide 20 L
BUN 18 H
Creatinine 0.8
Glucose 195 H
Calcium 8.3 L
Total Bilirubin 1.6 H
AST 123 H
ALT 67 H
Alkaline Phosphatase 199 H
Vital Signs:
Vital Signs
Temp Pulse Resp BP Pulse Ox
36.8 C 88 16 124/83 97
04/29/24 07:55 04/29/24 07:55 04/29/24 07:55 04/29/24 07:55 04/29/24 07:55
Review of Systems
-
All other systems: Reviewed and negative
Physical Exam
-
General: Well Developed, Well Nourished, No Apparent Distress, Comfortable and Conversant
HEENT: Normocephalic, Atraumatic, Nose Appears Normal and Ears Appear Normal
Respiratory: Clear to Auscultation and Non Labored Respirations; Negative Accessory Resp Muscle Use
Cardiac: Regular Rhythm and S1/S2
GI: Soft, Nontender, Nondistended and Normal Bowel Sounds
Skin: Warm and Dry
Neuro: Awake, Alert and Oriented
Psych: Calm
Data Reviewed
-
Diagnostic Radiology: Image personally visualized and interpreted and Report Reviewed by me
Labs: Labs Reviewed by me
[2024-04-29 10:26] LABS: Glycohemoglobin (HgbA1c) 6.8 % (4.0-5.6)
--- NOTE | 2024-04-29 11:40 | OR.RPT ---
Operative Report
Operative Report
Anesthesia Type:
General
Operative Indications:
Right intertrochanteric femur fracture
Operative Findings :
Same, some moderate comminution noted
Complications:
None
Implants:
A 10 mm x 380 mm gamma nail, 100 mm cephalomedullary lag screw, 2 distal interlocking screws
Procedure and Technique:
Insertion right long cephalomedullary nail
INDICATIONS FOR PROCEDURE:
83-year-old female presented to emergency department status post fall at home. She subsequently diagnosed with a right intertrochanteric femur fracture as well as a right distal radius buckle fracture. She is admitted to the hospital service
orthopedics was consulted for further evaluation and treatment. I will discussion the patient as well as her daughter who aided in translation regarding diagnosis and treatment options. Discussed with surgical nonsurgical options. After
discussion mutually elected to proceed with insertion right long cephalomedullary nail. We discussed risks benefits and alternatives of surgery. We discussed the usual expected perioperative postoperative course. After discussion written informed
consent was obtained
OPERATIVE PROCEDURE:
Patient was seen identified the preoperative holding area. Operative extremity was marked all questions were addressed. She is taken the operating room where general anesthesia was administered. She was placed supine on a fracture table.
Operative extremities placed a well-padded fracture boot. Contralateral extremity was padded and secured to the contralateral fracture post. Preliminary reduction was performed utilizing axial traction, slight adduction and internal rotation.
Appropriate reduction was achieved. Operation was then prepped and draped in normal sterile fashion. Timeout was performed again identifying correct operative extremity. Preoperative antibiotics were addressed. Small 3 cm incision was made
several fingerbreadths proximal to the greater trochanter. Sharp dissection was carried through skin subcutaneous tissue. Guidewire was then inserted to the greater trochanter according to technique at. This was inserted to level distal to the
lesser trochanter and a center center position. Opening reamer was then utilized and ball-tipped guidewire was then advanced to the level of the proximal pole of the patella. An 11.5 mm reamer was then utilized and a 10 mm nail appropriate length
was selected. This was inserted to appropriate depth. Additional trocar was inserted through aiming guide and additional stab incision was made. Guidewire was then advanced into the femoral head and neck appropriate position attention was paid to
minimize tip apex distance. Cannulated reamer was then utilized and appropriately sized cephalomedullary lag screw was placed. Setscrew was deployed after some compression was achieved. Attention was then turned to the distal femur where 2
additional stab incisions were made and 2 additional 5 mm distal interlocking screws were placed via perfect hoh technique of appropriate length. Final radiographs confirmed appropriate position of the implant. Satisfied with extent surgery,
wound was copious irrigated normal saline solution. Wounds were closed in layered fashion utilizing 0 Vicryl for deep fascial layer, 2-0 Vicryl for subcutaneous layer and shen for skin. Aquacel dressings were applied. Anesthesia was reversed
and patient was taken to PACU in stable condition. Postoperative plans include weightbearing to patient's tolerance in the right lower extremity. Will transition patient to a removable wrist brace for right upper extremity. Maintain
nonweightbearing status right upper extremity but okay to bear weight through forearm for platform walker. Recommend renally dosed Lovenox x 20 days for DVT prophylaxis daily. Plan to see patient back in office in 2 to 3 weeks for repeat
evaluation with repeat radiographs and plan removal of shen
Disposition:
PACU stable condition
[2024-04-29 11:50] LABS: Glucose - Point of Care 134 mg/dl (70-99)
[2024-04-29] MEDS: NSS 1000 IV ×2 (12:19→22:42)
[2024-04-29] MEDS: NOVOLOG FLEXPEN-LOW RESISTANCE SC (12:59)
[2024-04-29] MEDS: DILAUDID 0.25 MG IV (15:34)
--- NOTE | 2024-04-29 15:53 | CM ---
Met with patient and her primary contact/daughter, Noe Bowles; initial assessment and case management completed
s/p Insertion right long cephalomedullary nail; R Intertrochanteric femur fracture;
patient also has Right distal radius buckle fracture; ambulating with standard RW may be difficult
Pharmacy verified: [facility] @ [address] [place] [address]
Patient lives with her daughter; multilevel home; 1 step to enter; 18-20 steps to 2nd floor; railings present; patient's BR and Bath on 2nd floor; her bathroom has a tub w/shower; shower chair is available if needed; walk-in shower stall in the
other bath if needed; commode in her bedroom
PLOF: Daughter reported that patient was very independent with ambulation, stairs, and ADL; administered her medication; daughter filled pill box for her
No SNF or Home Health utilization history
Transportation to be determined
PT/OT assessment pending
Plan: Disposition when stable for discharge to be determined; CM will monitor for discharge needs
[2024-04-29 16:41] LABS: Glucose - Point of Care 204 mg/dl (70-99)
[2024-04-29] MEDS: NOVOLOG FLEXPEN-LOW RESISTANCE 2 UNITS SC (17:16)
[2024-04-29] MEDS: LIPITOR 40 MG PO (17:17)
[2024-04-29] MEDS: ANCEF 5 IV (17:17)
[2024-04-29] MEDS: COLACE 100 MG PO (19:41)
[2024-04-29 21:21] LABS: Glucose - Point of Care 287 mg/dl (70-99)
[2024-04-29] MEDS: REMERON 30 MG PO (21:46)
[2024-04-30] MEDS: ANCEF 5 IV (00:52)
[2024-04-30 07:18] VITALS: BP 123/69
[2024-04-30 07:20] LABS: Glucose - Point of Care 158 mg/dl (70-99)
[2024-04-30] MEDS: LOVENOX 40 MG SC (08:05)
[2024-04-30] MEDS: COLACE 100 MG PO ×2 (08:05→19:59)
[2024-04-30] MEDS: NOVOLOG FLEXPEN-LOW RESISTANCE 1 UNITS SC (08:06)
[2024-04-30] MEDS: NSS 1000 IV ×2 (08:07→18:07)
--- NOTE | 2024-04-30 11:30 | PTCARENOTE ---
Per Dr. Timbo Villela's order, Splint/Anupam Wrap removed from lower (R) arm and replaced with a removable RIGHT WRIST BRACE by this RN with PT/OT at bedside; right wrist brace obtained by Nursing Inspector [employer] Yogesh from ED, form completed and returned to
Yogesh for proper filing.
[2024-04-30 11:45] VITALS: BP 103/59; BP 117/63; PULSE 88; PULSE 94
[2024-04-30 11:47] VITALS: BP 103/59; BP 117/63; PULSE 88; PULSE 94; O2SAT 95
--- NOTE | 2024-04-30 11:47 | CM ---
Addendum entered by Kaylin Rivera 04/30/24 12:24:
Obtained SNF choices - 1 - [facility], 2 - [facility], 3 - [facility]
Referral sent in [facility] Port
Plan - anticipate transfer to SNF when medically stable
Original Note:
Case management following for discharge planning
PT/OT recommending SNF - discussed with pts daughter. Given choice list from medicare.gov
Daughter to review
Plan - anticipate transfer to SNF when medically stable
[2024-04-30 12:25] LABS: Glucose - Point of Care 244 mg/dl (70-99)
[2024-04-30] MEDS: NOVOLOG FLEXPEN-LOW RESISTANCE 2 UNITS SC ×2 (12:27→18:07)
--- NOTE | 2024-04-30 13:21 | W.PN.HOSP.TC ---
Today's Communication/Plan
-
.
Assessment / Plan
Assessment / Plan
HPI: 83-year-old Mandarin speaking female past medical history of ascending colon mass status post left colectomy, diabetes, hyperlipidemia, anxiety/depression, iron deficiency anemia, presented after a ground-level fall when she tripped over a cord
on the ground in the garage and landed on her right hip and right wrist.
She did not hit her head. She has been unable to walk since then.
NAD, resting comfortably in bed
Scleral anicteric
Moist mucous membranes
Pocketing food. Asked daughter if this was normal and she replied yes it is
No JVD
CTA bilateral
Normal S1-S2 no murmurs
Soft nontender nondistended bowel sounds active
No peripheral pitting edema
Right upper extremity wrapped in Anupam bandage. Right lower extremity able to wiggle toes.
AAO
A/P:
# mechanical fall with Right hip fracture
Pt is medically optimized for low to intermediate risk procedure. Benefit or procedure outweighs risk. Proceed with caution.
Ortho on board, s/p OR 04/29 Insertion right long cephalomedullary nail
pain control with Tylenol, tramadol
DVT ppx per orthopedic surgery
PT OT when able to participate
# Right wrist fracture
Splint to be placed
# Ascending colon mass status post left colectomy
# Chronic iron deficiency anemia secondary to blood loss from ascending colon mass
CBC pending
# Type 2 diabetes
Hold metformin
Insulin sliding scale
# Hyperlipidemia
Continue statin
# Anxiety/depression
Continue mirtazapine
DNR/DNI
DVT prophylaxis�SCDs
PT OT consulted
Likely will require long-term facility
Anticipated Discharge: 24 - 48 hours
Subjective/Interval History
-
Date of Service: April 30, 2024
Seen and examined. Watching iPad. Daughter at bedside.
No new complaints. No acute overnight events.
Daughter asking when she will begin exercising
Objective Data
-
Vital Signs:
Vital Signs
Temp Pulse Resp BP Pulse Ox
97.8 F 75 15 123/69 94
04/30/24 07:18 04/30/24 07:18 04/30/24 07:18 04/30/24 07:18 04/30/24 07:18
I&O
04/29/24 04/30/24 05/01/24
06:59 06:59 06:59
Intake Total 2175 / 2175 1200 / 1200
Output Total 350 / 350
Balance 1825 / 1825 1200 / 1200
[2024-04-30 15:14] VITALS: BP 110/62
--- NOTE | 2024-04-30 16:58 | W.PN.ORTHO ---
Today's Communication / Plan
-
83 yo F POD 1 s/p R CMN, non op treatment R distal radius buckle fx
NWB RUE , can transition to removable brace
WBAT RLE
PT/OT
DVT ppx- lovenox X 28 days
Pain control
PT OT- Ok to bear weight RUE with platform walker
F/u outpatient in 2-3 weeks with myself.
Subjective
.
.:
Patient resting comfortably. No documented overnight events.
Vital Signs and Labs
.
Vital Signs and Labs:
Lab Results
04/29/24 05:41
04/29/24 05:41
Temp Pulse Resp BP Pulse Ox
98.3 F 91 15 110/62 96
04/30/24 15:14 04/30/24 15:14 04/30/24 15:14 04/30/24 15:14 04/30/24 15:14
Non-invasive Hgb result: 8.8
Physical Exam
-
MSK RLE
Dressings CDI mild swelling
spontaneously moving toes
MSK RUE
Splint in place
moving exposed fingers
BCR
[2024-04-30] MEDS: LIPITOR 40 MG PO (18:03)
[2024-04-30 18:08] LABS: Glucose - Point of Care 245 mg/dl (70-99)
[2024-04-30] MEDS: REMERON 30 MG PO (21:53)
[2024-04-30 22:01] LABS: Glucose - Point of Care 164 mg/dl (70-99)
[2024-05-01 00:04] VITALS: BP 146/82
[2024-05-01 07:35] VITALS: BP 157/95
[2024-05-01 07:54] LABS: Glucose - Point of Care 136 mg/dl (70-99)
[2024-05-01] MEDS: NOVOLOG FLEXPEN-LOW RESISTANCE SC (08:04)
[2024-05-01 09:20] LABS: % Basophils 0.3 % (0-2); % Eosinophils 0.2 % (0-6); % Immature Granulocytes 0.6 % (0-0.5); % Lymphocytes 28.1 % (20.5-51.1); % Monocytes 9.9 % (1.7-9.3); % Neutrophils 60.9 % (42.2-75.2); Absolute Immature Granulocytes 0.1 10^3/uL (0-0.05); Absolute Lymphocytes 2.9 10^3/uL (1.2-3.4); Absolute Neutrophils 6.2 10^3/uL (1.4-6.5); Hematocrit 24.8 % (37.0-47.0); Mean Corp Hgb Conc. 32.3 g/dL (33.0-37.0); Mean Corpuscular Hgb 30.3 pg (27.0-31.0); Mean Corpuscular Volume 93.9 fL (81.0-99.0); Mean Platelet Volume 11.5 fL (7.4-10.4); Nucleated Red Blood Cells % 0 %; Platelet Count 224 10^3/uL (130-400); Red Blood Cell Count 2.64 10^6/uL (4.20-5.40); Red Cell Dist. Width 18.1 % (11.5-14.5); White Blood Cell Count 10.2 10^3/uL (4.8-10.8)
[2024-05-01] MEDS: COLACE 100 MG PO ×2 (09:20→21:13)
[2024-05-01] MEDS: LOVENOX 40 MG SC (09:20)
[2024-05-01] MEDS: ULTRAM 50 MG PO (09:24)
[2024-05-01 09:37] LABS: Iron 32 ug/dl (37-170)
[2024-05-01 09:49] LABS: Percent Saturation 12 % (20-50); Total Iron Binding Capacity 263 ug/dl (265-497)
[2024-05-01 10:13] LABS: Ferritin 25.9 ng/ml (11.1-264.0)
[2024-05-01 10:44] LABS: Folate 5.8 ng/ml (2.76-20); Vitamin B12 543 pg/ml (239-931)
--- NOTE | 2024-05-01 11:08 | W.PN.HOSP.TC ---
Today's Communication/Plan
-
start Fe infusion
recheck Hgb in AM
Assessment / Plan
Assessment / Plan
HPI: 83-year-old Mandarin speaking female past medical history of ascending colon mass status post left colectomy, diabetes, hyperlipidemia, anxiety/depression, iron deficiency anemia, presented after a ground-level fall when she tripped over a cord
on the ground in the garage and landed on her right hip and right wrist.
She did not hit her head. She has been unable to walk since then.
A/P:
# mechanical fall with Right hip fracture
Ortho on board, s/p OR 04/29 Insertion right long cephalomedullary nail
pain control with Tylenol, tramadol
DVT ppx per orthopedic surgery
PT OT when able to participate (ordered)
# Right wrist fracture
Splint placed
# Ascending colon mass status post left colectomy
# Chronic iron deficiency anemia secondary to blood loss from ascending colon mass
10.9-->9.7-->8.0
Fe sat 12%
Ferritin 25.9
will order Fe infusion
# Type 2 diabetes
Hold metformin
Insulin sliding scale
a1c 6.8%
# Hyperlipidemia
Continue statin
# Anxiety/depression
Continue mirtazapine
DNR/DNI
DVT prophylaxis�SCDs
PT OT consulted
Likely will require care home facility
extensive review with dgt in room
Anticipated Discharge: 24 - 48 hours
Subjective/Interval History
-
Date of Service: May 01, 2024
Awake, alert, dgt in room to translate
Objective Data
-
Labs:
Laboratory Results
05/01/24
09:01
WBC 10.2
Hgb 8.0 L
Hct 24.8 L
Plt Count 224
Vital Signs:
Vital Signs
Temp Pulse Resp BP Pulse Ox
98.2 F 96 18 157/95 96
05/01/24 07:35 05/01/24 07:35 05/01/24 07:35 05/01/24 07:35 05/01/24 07:35
I&O
04/30/24 05/01/24 05/02/24
06:59 06:59 06:59
Intake Total 2175 / 2175 4220 / 4220
Output Total 350 / 350
Balance 1825 / 1825 4220 / 4220
Review of Systems
-
History Source: Patient and Family (dgt in room)
Constitutional: Denies Fever
EENT: Reports No Symptoms Reported
Respiratory: Reports No Symptoms
Cardiac: Reports No Symptoms
Abdomen/GI: Reports No Symptoms
Musculoskeletal: Reports Joint Pain (especially with ambulation)
Physical Exam
-
General: Well Developed, Well Nourished, No Apparent Distress, Comfortable and Conversant
HEENT: Normocephalic, Atraumatic, Nose Appears Normal and Ears Appear Normal
Respiratory: Clear to Auscultation and Non Labored Respirations; Negative Accessory Resp Muscle Use
Cardiac: Regular Rhythm and S1/S2
GI: Soft, Nontender, Nondistended and Normal Bowel Sounds
Skin: Warm and Dry
Neuro: Awake, Alert and Oriented
Psych: Calm
--- NOTE | 2024-05-01 11:25 | CM ---
Reviewed the chart notes and spoke with the patient's daughter at the bedside. Patient's daughter has spoken with Juliet Wang who has offered a bed. No precert required. CM continues to be available to patient/family and is monitoring medical
plan for needs at discharge.
Plan: Discharge to SNF/rehab once medically stable prior to transitioning back to home.
[2024-05-01 11:53] LABS: Glucose - Point of Care 191 mg/dl (70-99)
[2024-05-01 12:30] VITALS: BP 145/73; PULSE 96; O2SAT 95
[2024-05-01] MEDS: NOVOLOG FLEXPEN-LOW RESISTANCE 1 UNITS SC (13:21)
[2024-05-01] MEDS: FERRLECIT 110 MG IV (13:54)
[2024-05-01 15:25] VITALS: BP 148/75
[2024-05-01] MEDS: NOVOLOG FLEXPEN-LOW RESISTANCE 2 UNITS SC (17:30)
[2024-05-01] MEDS: LIPITOR 40 MG PO (17:30)
[2024-05-01 17:31] LABS: Glucose - Point of Care 219 mg/dl (70-99)
[2024-05-01] MEDS: REMERON 30 MG PO (21:13)
[2024-05-01 21:39] LABS: Glucose - Point of Care 160 mg/dl (70-99)
[2024-05-01 23:30] VITALS: BP 150/76
[2024-05-02] MEDS: ULTRAM 50 MG PO (04:26)
[2024-05-02 06:33] LABS: % Basophils 0.5 % (0-2); % Eosinophils 0.9 % (0-6); % Immature Granulocytes 0.3 % (0-0.5); % Lymphocytes 41.7 % (20.5-51.1); % Monocytes 10.3 % (1.7-9.3); % Neutrophils 46.3 % (42.2-75.2); Absolute Eosinophils 0.1 10^3/uL (0-0.7); Absolute Lymphocytes 3.1 10^3/uL (1.2-3.4); Absolute Monocytes 0.8 10^3/uL (0.1-0.6); Absolute Neutrophils 3.5 10^3/uL (1.4-6.5); Hematocrit 21.7 % (37.0-47.0); Hemoglobin 7.2 g/dL (12.0-16.0); Mean Corp Hgb Conc. 33.2 g/dL (33.0-37.0); Mean Corpuscular Hgb 31.7 pg (27.0-31.0); Mean Corpuscular Volume 95.6 fL (81.0-99.0); Mean Platelet Volume 11.8 fL (7.4-10.4); Nucleated Red Blood Cells % 0 %; Platelet Count 203 10^3/uL (130-400); Red Blood Cell Count 2.27 10^6/uL (4.20-5.40); Red Cell Dist. Width 17.7 % (11.5-14.5); White Blood Cell Count 7.5 10^3/uL (4.8-10.8)
[2024-05-02 07:20] VITALS: BP 130/69
[2024-05-02 07:23] LABS: Glucose - Point of Care 143 mg/dl (70-99)
[2024-05-02] MEDS: NOVOLOG FLEXPEN-LOW RESISTANCE SC (08:35)
[2024-05-02] MEDS: COLACE 100 MG PO ×2 (08:36→22:14)
[2024-05-02] MEDS: LOVENOX 40 MG SC (08:36)
[2024-05-02 11:11] LABS: Glucose - Point of Care 185 mg/dl (70-99)
[2024-05-02] MEDS: NOVOLOG FLEXPEN-LOW RESISTANCE 1 UNITS SC ×2 (12:52→18:32)
--- NOTE | 2024-05-02 14:31 | CM ---
Reviewed the chart notes. CM continues to be available to patient/family and is monitoring medical plan for needs at discharge.
Plan: Discharge to [facility] when medically stable. No precert required.
--- NOTE | 2024-05-02 14:38 | W.PN.HOSP.TC ---
Today's Communication/Plan
-
.
Assessment / Plan
Assessment / Plan
NAD, resting comfortably in bed
Scleral anicteric
Moist mucous membranes
No JVD
CTA bilateral
Normal S1-S2 no murmurs
Soft nontender nondistended bowel sounds active
No peripheral pitting edema
Right upper extremity wrapped in Anuapm bandage. Right lower extremity able to wiggle toes.
AAO
A/P:
# mechanical fall with Right hip fracture
Pt is medically optimized for low to intermediate risk procedure. Benefit or procedure outweighs risk. Proceed with caution.
Ortho on board, s/p OR 04/29 Insertion right long cephalomedullary nail
pain control with Tylenol, tramadol
DVT ppx per orthopedic surgery
PT OT when able to participate
#Anemia without active bleeding. Likely in part to Iron deficiency anemia along with perioperative blood loss. Without evidence of active ongoing bleeding as there is no hematuria, dark tarry stools, bright red stools. At the incision sites
steroid no hematomas, there is no groin hematoma nor evidence of Gonzalez Young's or [place] sign to suspect RP bleed. Hemodynamically stable. Without evidence of symptomatic anemia either. Therefore at this time continue IV iron infusion and
continue p.o. iron supplementation.
# Right wrist fracture
Splint to be placed
# Ascending colon mass status post left colectomy
# Chronic iron deficiency anemia secondary to blood loss from ascending colon mass
CBC pending
# Type 2 diabetes
Hold metformin
Insulin sliding scale
# Hyperlipidemia
Continue statin
# Anxiety/depression
Continue mirtazapine
DNR/DNI
DVT prophylaxis�SCDs
PT OT consulted
For jail facility
Anticipated Discharge: Within 24 hours
Subjective/Interval History
-
Date of Service: May 02, 2024
Seen and examined. No new complaints. No acute overnight events.
Per daughter who is at bedside did not sleep much overnight however is sleeping now.
Objective Data
-
Labs:
Laboratory Results
05/02/24
05:21
WBC 7.5
Hgb 7.2 L
Hct 21.7 L
Plt Count 203
Vital Signs:
Vital Signs
Temp Pulse Resp BP Pulse Ox
97.7 F 80 18 130/69 99
05/02/24 07:20 05/02/24 07:20 05/02/24 07:20 05/02/24 07:20 05/02/24 07:20
I&O
05/01/24 05/02/24 05/03/24
06:59 06:59 06:59
Intake Total 4220 / 4220 240 / 240
Balance 4220 / 4220 240 / 240
[2024-05-02] MEDS: FERRLECIT 110 MG IV (15:13)
[2024-05-02 15:15] VITALS: BP 132/79
[2024-05-02 15:16] LABS: Glucose - Point of Care 176 mg/dl (70-99)
[2024-05-02 16:05] VITALS: BP 143/94; PULSE 100; O2SAT 100
[2024-05-02] MEDS: LIPITOR 40 MG PO (18:31)
[2024-05-02 22:14] LABS: Glucose - Point of Care 176 mg/dl (70-99)
[2024-05-02] MEDS: REMERON 30 MG PO (22:14)
[2024-05-02 23:02] VITALS: BP 122/78
[2024-05-03] MEDS: ULTRAM 50 MG PO ×2 (05:15→16:58)
[2024-05-03 06:26] LABS: Hematocrit 21.5 % (37.0-47.0); Hemoglobin 7.2 g/dL (12.0-16.0); Mean Corp Hgb Conc. 33.5 g/dL (33.0-37.0); Mean Corpuscular Volume 95.6 fL (81.0-99.0); Mean Platelet Volume 11.4 fL (7.4-10.4); Platelet Count 243 10^3/uL (130-400); Red Blood Cell Count 2.25 10^6/uL (4.20-5.40); Red Cell Dist. Width 17.5 % (11.5-14.5)
[2024-05-03 07:35] VITALS: BP 141/82
[2024-05-03 07:35] LABS: Glucose - Point of Care 134 mg/dl (70-99)
[2024-05-03] MEDS: NOVOLOG FLEXPEN-LOW RESISTANCE SC (08:28)
[2024-05-03] MEDS: LOVENOX 40 MG SC (08:29)
[2024-05-03] MEDS: COLACE 100 MG PO ×2 (08:29→19:56)
[2024-05-03] MEDS: PREVNAR 20 0.5 ML IM (08:59)
--- NOTE | 2024-05-03 11:46 | W.PN.HOSP.TC ---
Today's Communication/Plan
-
Awaiting bed avaliablity and insurance approval for SNF.
Assessment / Plan
Assessment / Plan
NAD, resting comfortably in bed
Scleral anicteric
Moist mucous membranes
No JVD
CTA bilateral
Normal S1-S2 no murmurs
Soft nontender nondistended bowel sounds active
No peripheral pitting edema
Right upper extremity wrapped in splint. Right lower extremity able to wiggle toes.
-Soft compartments, no tendnerss, no hematoma, no Gonzalez turners/cullens sign
A/P:
# mechanical fall with Right hip fracture
Pt is medically optimized for low to intermediate risk procedure. Benefit or procedure outweighs risk. Proceed with caution.
Ortho on board, s/p OR 04/29 Insertion right long cephalomedullary nail
pain control with Tylenol, tramadol
DVT ppx per orthopedic surgery
PT OT when able to participate
#Anemia without active bleeding. Hgb stable at 7.2. Likely in part to Iron deficiency anemia along with perioperative blood loss. IV Iron infusion with plans to convert to PO Atb's
# Right wrist fracture
Splint to be placed
# Ascending colon mass status post left colectomy
# Chronic iron deficiency anemia secondary to blood loss from ascending colon mass
CBC pending
# Type 2 diabetes
Hold metformin
Insulin sliding scale
# Hyperlipidemia
Continue statin
# Anxiety/depression
Continue mirtazapine
DNR/DNI
DVT prophylaxis�SCDs
PT OT consulted
For intermediate facility
Anticipated Discharge: Today
Subjective/Interval History
-
Date of Service: May 03, 2024
Seen and examined. No new complaints. No acute overnight events.
Did not sleep much due to nursing interruptions throughout the night.
Daughter updated at bedside. Hemoglobin stable.
-Daughter noted increased swelling of right lower extremity. No hematoma noted. No evidence of tense compartments. No evidence of color change. No change in sensation.
Objective Data
-
Labs:
Laboratory Results
05/03/24
05:29
WBC 8.0
Hgb 7.2 L
Hct 21.5 L
Plt Count 243
Vital Signs:
Vital Signs
Temp Pulse Resp BP Pulse Ox
98.2 F 82 14 141/82 98
05/03/24 07:35 05/03/24 07:35 05/03/24 07:35 05/03/24 07:35 05/03/24 07:35
I&O
05/02/24 05/03/24 05/04/24
06:59 06:59 06:59
Intake Total 240 / 240 1260 / 1260
Balance 240 / 240 1260 / 1260
--- NOTE | 2024-05-03 11:51 | W.DCSUMMARY ---
Discharge Summary
Discharge Data
Date of Admission: 04/28/24
Date of Discharge: 05/03/24
-
Pending Results: No
Hospital Course
83-year-old Mandarin speaking female past medical history of ascending colon mass status post left colectomy, diabetes, hyperlipidemia, anxiety/depression, iron deficiency presented after ground-level fall, tripped over a cord in the garage landed
on right hip/right wrist. Found to have a fracture of the right proximal femur. Additionally, found to have a buckle fracture of the right radius. Evaluated by orthopedic surgery that recommended brace and sling with nonoperative treatment of
right distal radius buckle fracture. Continue nonweightbearing status. Right femur fracture s/p right cephalomedullary nail fixation. Evaluated by physical therapy recommended SNF and okay to bear weight on right upper extremity with platform
walker. Per orthopedics continue DVT prophylaxis with Lovenox for 28 days.
Should be noted hemoglobin has trended down this is likely related to perioperative blood loss. Can repeat CBC in 3 days. Day of discharge which was 05/03/24 hemoglobin 7.2. Additionally found to have iron deficiency anemia with low iron
saturation. Started on IV iron which has been transitioned to p.o. iron for discharge. If bruising or swelling around the right hip and noticed bleeding return to the hospital.
Outpatient PCP follow-up along with orthopedics. Will need outpatient DEXA scan to assess for osteoporosis/osteopenia.
Discharge Plan
-
Patient Disposition: Snf/SNF
Discharge Diagnosis/Procedures: Right hip fracture
Diet: As tolerated
Activity: With assistance, As tolerated, With Walker and No strenuous activity
Driving Restrictions: No driving
Blood Work: CBC in 3 days
Referrals:
Kathleen Rhodes DO [Family Provider] -
Timbo Villela MD [Active] - in two to three weeks
Additional Discharge Medication Instructions: Presented after ground-level fall, tripped over a cord in the garage landed on right hip/right wrist. Found to have a fracture of the right proximal femur. Additionally, found to have a buckle fracture
of the right radius. Evaluated by orthopedic surgery that recommended brace and sling with nonoperative treatment of right distal radius buckle fracture. Continue nonweightbearing status. Right femur fracture s/p right cephalomedullary nail
fixation. Evaluated by physical therapy recommended SNF and okay to bear weight on right upper extremity with platform walker. Per orthopedics continue DVT prophylaxis with Lovenox for 28 days.
Should be noted hemoglobin has trended down this is likely related to perioperative blood loss. Can repeat CBC in 3 days. Day of discharge which was 05/03/24 hemoglobin 7.2. Additionally found to have iron deficiency anemia with low iron
saturation. Started on IV iron which has been transitioned to p.o. iron for discharge. If bruising or swelling around the right hip and noticed bleeding return to the hospital.
Outpatient PCP follow-up along with orthopedics. Will need outpatient DEXA scan to assess for osteoporosis/osteopenia.
If symptoms worsen return to the hospital
Prescriptions:
New
enoxaparin 40 mg/0.4 mL Syringe
40 mg SC DAILY 28 Days Qty: 11.2 0RF
Continued
atorvastatin [Lipitor] 40 mg Tablet
40 mg PO QPM
metformin 500 mg Tablet
500 mg PO BID@0800,1700
mirtazapine 30 mg Tablet
30 mg PO HS
Discharge Orders:
Discharge Patient (As Directed); Ordered 05/03/24
Ordered By: Sagar Persaud
Discharge Date and Time
Print Language: THAI
[2024-05-03 11:59] LABS: Glucose - Point of Care 196 mg/dl (70-99)
[2024-05-03] MEDS: NOVOLOG FLEXPEN-LOW RESISTANCE 1 UNITS SC ×2 (12:30→16:58)
[2024-05-03] MEDS: FERRLECIT 110 MG IV (13:04)
[2024-05-03] MEDS: FLUSH (NSS) 2 FLUSH IV (13:04)
--- NOTE | 2024-05-03 13:52 | CM ---
spoke with jose de jesus at [facility].jose de jesus indicated that patient will need to chose an insurance co before they can admit her.i called patient's daughter and explained that she meghann need to call medicaid and select an insurance co.daughter told me she
would like [facility] but has been on the phone for over 4 hours and has been hung up several times before they could help her.i called and spoke with aureliano at [facility] and she will call patient and see if she can offer some assistance.however,
[facility] cannot make the call for patient.once patient chooses an insurance co then precert will be needed.Plan [facility] when an insurance co is selected.
[2024-05-03 15:25] VITALS: BP 131/75
[2024-05-03 15:28] VITALS: BP 131/75; PULSE 89; O2SAT 95
[2024-05-03 15:30] VITALS: BP 131/75; PULSE 89; O2SAT 96
[2024-05-03 16:10] LABS: Glucose - Point of Care 199 mg/dl (70-99)
[2024-05-03] MEDS: LIPITOR 40 MG PO (17:00)
--- NOTE | 2024-05-03 17:11 | CM ---
Call received from Analisa Carrera/[facility], she stated she called this patient as well as the patient's daughter. She also attempted to call the [facility] Assistance Office however they would not provide her any information and stated that the patient or
her daughter needed to call into them. Per Analisa daughter did try to call the [facility] and was told that her Mother would need to keep her recipient number, they did not give an option for Daughter to pick a Managed MA plan for her Mom. The Daughter
believes that since her Mom had her green card for more than 5 years that she would be eligible for a Managed MA plan. Per Analisa Daughter stated they have been on the phone for 4 hours today with the [facility] trying to clarify this and have been
hung up on and is not receiving answers to her questions. Analisa stated she spoke to her Housekeeper , Anne , who stated that the patient must not yet be over her 5 years of having a green card, therefore will continue to just have a recipient
number and not be assigned a Managed MA plan. Based on date Daughter gave Carmen , it appears she would not be eligible for additional benefits until December of 2024. Analisa stated she would call the Daughter back to explain. Update to .
[2024-05-03 21:32] LABS: Glucose - Point of Care 202 mg/dl (70-99)
[2024-05-03 22:50] VITALS: BP 129/78
[2024-05-03] MEDS: REMERON 30 MG PO (23:50)
[2024-05-04 07:22] LABS: Glucose - Point of Care 124 mg/dl (70-99)
[2024-05-04 07:25] VITALS: BP 129/73
[2024-05-04] MEDS: LOVENOX 40 MG SC (08:29)
[2024-05-04] MEDS: COLACE 100 MG PO (08:30)
[2024-05-04] MEDS: NOVOLOG FLEXPEN-LOW RESISTANCE SC (08:30)
[2024-05-04] MEDS: HYDROCORTISONE 2.5% CREAM 1 APPLIC TOPICAL (08:40)
--- NOTE | 2024-05-04 11:00 | CM ---
CM spoke with the patient's daughter at the bedside. Patient does not have insurance to go to SNF. Family taking home. Order faxed to [facility] for an electric bed with rails and a R sided platform crutch for wheelchair. These will
be private pay. Daughter requests w/c van transportation. There is 1 step to enter the home. CM continues to be available to patient/family and is monitoring medical plan for needs at discharge.
Plan: Home with no needs.
Transport form on chart.
[2024-05-04 11:25] VITALS: BP 130/76
[2024-05-04 11:45] VITALS: BP 108/70; PULSE 96; O2SAT 95
[2024-05-04 11:47] LABS: Glucose - Point of Care 200 mg/dl (70-99)
--- NOTE | 2024-05-04 11:49 | PN.CDI ---
CDI
- -
CDI:
Physician Documentation Request
Admit Date: 04/28/24 19:22
Dear Doctor Hung,
Clinical Indicators:
Patient admitted with right hip fracture; s/p Right long cephalomedullary nail insertion 04/29.
Anesthesia report, EBL 100 ml
05/03 PN, 'Anemia without active bleeding. Hgb stable at 7.2. Likely in part to Iron deficiency anemia along with perioperative blood loss... Chronic iron deficiency anemia secondary to blood loss from ascending colon mass'
Based on the above, could you clarify, the acuity of the anemia you are evaluating, monitoring and/or treating?
Acute on chronic anemia due iron deficiency and perioperative blood loss
Chronic anemia only
Other, please specify
Use of terms such as suspected, likely, concern for, or probable (associated with a specific diagnosis that is being evaluated, monitored, or treated as if it exists) are acceptable and can be coded in the inpatient setting, when documented at the
time of discharge.
Thank you,
Rosanne Bella RN BSN
CDI Specialist
available via tiger text
Please use your independent medical judgment in providing your response.
--- NOTE | 2024-05-04 11:52 | W.PN.HOSP.TC ---
Today's Communication/Plan
-
dc home
Assessment / Plan
Assessment / Plan
NAD, resting comfortably in bed
Scleral anicteric
Moist mucous membranes
No JVD
CTA bilateral
Normal S1-S2 no murmurs
Soft nontender nondistended bowel sounds active
No peripheral pitting edema
Right upper extremity wrapped in splint. Right lower extremity able to wiggle toes.
-Soft compartments, no tendnerss, no hematoma, no Gonzalez turners/cullens sign
A/P:
# mechanical fall with Right hip fracture
Pt is medically optimized for low to intermediate risk procedure. Benefit or procedure outweighs risk. Proceed with caution.
Ortho on board, s/p OR 04/29 Insertion right long cephalomedullary nail
pain control with Tylenol, tramadol
DVT ppx per orthopedic surgery
PT OT when able to participate
#Anemia without active bleeding. Hgb stable at 7.2. Likely in part to Iron deficiency anemia along with perioperative blood loss. IV Iron infusion with plans to convert to PO Atb's
# Right wrist fracture
Splint to be placed
# Ascending colon mass status post left colectomy
# Chronic iron deficiency anemia secondary to blood loss from ascending colon mass
CBC pending
# Type 2 diabetes
Hold metformin
Insulin sliding scale
# Hyperlipidemia
Continue statin
# Anxiety/depression
Continue mirtazapine
DNR/DNI
DVT prophylaxis�SCDs
PT OT consulted
For long term facility. Unfortunately, unable to discharge to SNF. Will discharge home now.
Anticipated Discharge: Today
Subjective/Interval History
-
Date of Service: May 04, 2024
seen and examined. no new complaints. no acute ovenright events
feeling better.
rle swelling improving
paper script provided for home pt/ot.
Objective Data
-
Vital Signs:
Vital Signs
Temp Pulse Resp BP Pulse Ox
98.0 F 76 18 129/73 98
05/04/24 07:25 05/04/24 07:25 05/04/24 07:25 05/04/24 07:25 05/04/24 07:25
I&O
05/03/24 05/04/24 05/05/24
06:59 06:59 06:59
Intake Total 1260 / 1260 1909
Balance 1260 / 1260 1909
--- NOTE | 2024-05-04 11:55 | W.DCSUMMARY ---
Addendum entered and electronically signed by Sagar Persaud MD 05/06/24 15:37:
Acute on chronic anemia due iron deficiency and perioperative blood loss
Original Note:
Discharge Summary
Discharge Data
Date of Admission: 04/28/24
Date of Discharge: 05/04/24
-
Pending Results: No
Hospital Course
84F history of ascending colon mass status post left colectomy, diabetes, hyperlipidemia, anxiety/depression, iron deficiency anemia presented after ground-level fall, tripped over a cord in the garage landed on right hip/right wrist. Found to have
a fracture of the right proximal femur. Additionally, found to have a buckle fracture of the right radius. Evaluated by orthopedic surgery that recommended brace and sling with nonoperative treatment of right distal radius buckle fracture.
Continue nonweightbearing status. Right femur fracture s/p right cephalomedullary nail fixation. Evaluated by physical therapy recommended SNF and okay to bear weight on right upper extremity with platform walker. Unfortunately, unable to
discharge to SNF due to insurance reasons. Per orthopedics continue DVT prophylaxis with Lovenox for 28 days.
Should be noted hemoglobin has trended down this is likely related to perioperative blood loss. Can repeat CBC in 3 days. Day of discharge which was 05/03/24 hemoglobin 7.2. Additionally found to have iron deficiency anemia with low iron
saturation. Started on IV iron which has been transitioned to p.o. iron for discharge. If bruising or swelling around the right hip and noticed bleeding return to the hospital.
Outpatient PCP follow-up along with orthopedics. Will need outpatient DEXA scan to assess for osteoporosis/osteopenia.
If symptoms worsen return to the hospital
Discharge Plan
-
Patient Disposition: Care Home/SNF
Discharge Diagnosis/Procedures: Right hip fracture
Diet: As tolerated
Activity: With assistance, As tolerated, With Walker and No strenuous activity
Driving Restrictions: No driving
Blood Work: CBC in 3 days
Referrals:
Kathleen Rhodes DO [Family Provider] -
Timbo Villela MD [Active] - in two to three weeks
Additional Discharge Medication Instructions: Presented after ground-level fall, tripped over a cord in the garage landed on right hip/right wrist. Found to have a fracture of the right proximal femur. Additionally, found to have a buckle fracture
of the right radius. Evaluated by orthopedic surgery that recommended brace and sling with nonoperative treatment of right distal radius buckle fracture. Continue nonweightbearing status. Right femur fracture s/p right cephalomedullary nail
fixation. Evaluated by physical therapy recommended SNF and okay to bear weight on right upper extremity with platform walker. Unfortunately, unable to discharge to SNF due to insurance reasons. Per orthopedics continue DVT prophylaxis with Lovenox
for 28 days.
Should be noted hemoglobin has trended down this is likely related to perioperative blood loss. Can repeat CBC in 3 days. Day of discharge which was 05/03/24 hemoglobin 7.2. Additionally found to have iron deficiency anemia with low iron
saturation. Started on IV iron which has been transitioned to p.o. iron for discharge. If bruising or swelling around the right hip and noticed bleeding return to the hospital.
Outpatient PCP follow-up along with orthopedics. Will need outpatient DEXA scan to assess for osteoporosis/osteopenia.
If symptoms worsen return to the hospital
Prescriptions:
New
enoxaparin 40 mg/0.4 mL Syringe
40 mg SC DAILY 28 Days Qty: 11.2 0RF
Continued
atorvastatin [Lipitor] 40 mg Tablet
40 mg PO QPM
metformin 500 mg Tablet
500 mg PO BID@0800,1700
mirtazapine 30 mg Tablet
30 mg PO HS
Discharge Orders:
Discharge Patient (As Directed); Ordered 05/04/24
Ordered By: Sagar Persaud
Discharge Date and Time
Print Language: K[place]
[2024-05-04 12:28] VITALS: BP 108/70; O2SAT 95
[2024-05-04] MEDS: NOVOLOG FLEXPEN-LOW RESISTANCE 2 UNITS SC (13:01)
== END 2024-05-04 13:26 | disposition home or self-care (01) | DRG 481 ==
LOC: 2 SOUTH 19:22
PROVIDERS: Internal Medicine; Nurse Practitioner Gerontology; Physician Assistant; ADMITTING PHYSICIAN Hospitalist; ATTENDING PHYSICIAN Hospitalist; CONSULT PHYSICIAN Orthopaedic Surgery; EMERGENCY PHYSICIAN Emergency Medicine; FAMILY PHYSICIAN Family Medicine
PROC: 0QH836Z Insertion of Intramedullary Internal Fixation Device into Right Femoral Shaft, Percutaneous Approach (ICD-10-PCS; 2024-04-29)
DX: S72.141A Displaced intertrochanteric fracture of right femur, initial encounter for closed fracture (principal); C18.9 Malignant neoplasm of colon, unspecified; D62 Acute posthemorrhagic anemia; E11.9 Type 2 diabetes mellitus without complications; E78.00 Pure hypercholesterolemia, unspecified; F41.9 Anxiety disorder, unspecified; F32.A Depression, unspecified; Z66 Do not resuscitate; W19.XXXA Unspecified fall, initial encounter
CPT/HCPCS: 29125; 73110; 73502; 73552; 76000; 80048; 80053; 82607; 82728; 82746; 82962; 83036; 83540; 83550; 85025; 85027; 86850; 86900; 86901; 90677; 97110; 97116; 97163; 97167; 97530; 97535; 99285; C1713; C1769; G0009; J2916

== ENCOUNTER → 2024-07-05 07:26 | Outpatient (REF) | payer MEDICAID, SELFPAY | LOC: HWRAD 07:26 | PROVIDERS: ATTENDING PHYSICIAN Student in an Organized Health Care Education/Training Program | DX: R79.89 Other specified abnormal findings of blood chemistry (principal) | CPT/HCPCS: 76700 ==

== ENCOUNTER 2025-03-31 11:42 | Emergency (ER) | payer MEDICAID, SELFPAY ==
[2025-03-31 11:43] VITALS: BMI 27.0
[2025-03-31 11:45] VITALS: BP 144/83
--- NOTE | 2025-03-31 13:21 | ED.GENMED ---
History of Present Illness
General
Chief Complaint: Cough
Time Seen by Provider: 03/31/25 13:15
History of Present Illness
History of Present Illness:
84-year-old female presents to the emergency department for evaluation of persistent productive cough for the past 1 month, cough is worsened over the past week. Denies chest pain or dyspnea. No fevers, chills, sweats, nausea, vomiting, or
diarrhea. Non-smoker. No underlying history of lung disease. No ill contacts at home.
Past History
Past History
ED Past Medical History: None
ED Past Surgical History:
Social History
Tobacco: Non-smoker
Alcohol: None
Personal: Single
Living: with family
Review of Systems
Review of Systems
Allergies reviewed?: Yes
All Other Systems: ROS reviewed and negative except as documented in HPI and ROS
Phy Exam
Physical Exam
Physical Exam:
GEN: Well appearing, NAD, WDWN
HEENT: Oral mucosa moist, no scleral icterus
Cardiac: Regular rate and rhythm, no murmurs
Lung: No respiratory distress, no tachypnea lungs clear to auscultation bilaterally
MSK: No gross deformity or injuries
Skin: Good color, no pallor or jaundice, no rashes
Neuro: AO x3, moves all extremities freely
Psych: Calm, cooperative
Course
Orders/Labs/Results
Orders:
Orders
03/31/25 13:20
CR Chest - 2 Views Urgent
Comment:
Reason For Exam: cough
Vital Signs
Initial and Last Documented VS:
Initial Vital Signs
Temp Pulse Resp BP Pulse Ox
98.5 F 72 16 144/83 96
03/31/25 11:45 03/31/25 11:45 03/31/25 11:45 03/31/25 11:45 03/31/25 11:45
Last Documented Vital Signs
Temp Pulse Resp BP Pulse Ox
98.5 F 72 16 150/90 98
03/31/25 11:45 03/31/25 11:45 03/31/25 11:45 03/31/25 13:43 03/31/25 13:29
MDM/Problems Addressed
MDM/Problems Addressed:
Chest x-ray obtained showing no evidence for acute cardiopulmonary disease. Given 1 month duration of productive cough with purulent sputum I will treat presumptively for a secondary bacterial infection/bacterial rhinosinusitis/bronchitis with
antibiotics
*Pulse Oximetry
SaO2: 96
Oxygen Mode of Delivery: Room air
Patient hypoxic: no
*Critical Care Note
Total Time (30-74mins, 75-104mins- exclusive of procedures): Not Applicable
ED Attending Note
-
Portions of this chart may have been created with voice recognition software.� Occasional wrong word or��sound alike� substitutions may have occurred due to the inherent limitations of voice recognition software.
Discharge Plan
Departure
Patient Disposition: Home (Routine Discharge)
Date of Disposition: 03/31/25
Time of Disposition: 13:52
Patient with high blood pressure during this ER visit?: No
Discharge Problem:
Acute bronchitis
Instructions: Acute Bronchitis, Adult (DC)
Prescriptions:
New
azithromycin [Zithromax] 250 mg tablet
250 mg PO DAILY Qty: 6 0RF
Rx Instructions:
500mg PO on day 1 then 250mg PO qd x 4
No Action
atorvastatin [Lipitor] 40 mg Tablet
40 mg PO QPM
metformin 500 mg Tablet
500 mg PO BID@0800,1700
mirtazapine 30 mg Tablet
30 mg PO HS
enoxaparin 40 mg/0.4 mL Syringe
40 mg SC DAILY 28 Days Qty: 11.2 0RF
tramadol 50 mg Tablet
50 mg PO Q6HPRN PRN (Reason: moderate pain) 3 Days Qty: 12 0RF
Interventions
Interventions:
*Risk Screen - Suicide Last Done: 03/31/25 11:45
*General Assessment Last Done: 03/31/25 13:29
*Neglect/Abuse Screening Last Done: 03/31/25 11:45
*ED- Fall Risk Assessment Last Done: 03/31/25 13:29
*Nursing Disposition Last Done: 03/31/25 14:03
ED- Pulmonary Assessment Last Done: 03/31/25 13:29
Discharge Date and Time
Discharge Date/Time: 03/31/25 14:06
Print Language: Mandarin Monegasque
[2025-03-31 13:43] VITALS: BP 150/90
== END 2025-03-31 14:06 | disposition home or self-care (01) ==
LOC: EMR 11:42
PROVIDERS: EMERGENCY PHYSICIAN Emergency Medicine; FAMILY PHYSICIAN Student in an Organized Health Care Education/Training Program
DX: J20.9 Acute bronchitis, unspecified (principal)
CPT/HCPCS: 99283; 71046